=== PATIENT | male | born 1965 | race Caucasian/White ===

== ENCOUNTER 2016-10-01 15:33 | Inpatient (IN) | payer MEDICARE ==
--- NOTE | 2016-10-01 15:59 | ED ---
General Adult HPI - General Chief complaint: Chest Pain Stated complaint: chest pain Time Seen by Provider: 10/01/16 15:42 Source: patient, RN notes reviewed, old records reviewed Mode of arrival: ambulatory Limitations: no limitations - History of Present Illness Initial comments: This is a 51-year-old male via for evaluation of chest pain. Patient awoke with chest pain earlier this morning with chest pain and off for him mild radiation no source of breath no cough or congestion. Patient does have history of high blood pressure high cholesterol smoking and some heart palpitations heart issues. Patient has a history of angina as well. Patient denies any fevers or cough or congestion or family history. Patient's chest pain has been persistent, no modifying factors, not better with Motrin - Related Data Home Medications Medication Instructions Recorded Confirmed Ibuprofen [Motrin] 800 mg PO BID PRN 10/01/16 10/01/16 Allergies Allergy/AdvReac Type Severity Reaction Status Date / Time latex Allergy Rash/Hives Verified 10/01/16 15:55 Review of Systems ROS Statement: Those systems with pertinent positive or pertinent negative responses have been documented in the HPI. ROS Other: All systems not noted in ROS Statement are negative. Past Medical History Past Medical History: Asthma, GERD/Reflux, Hypertension, Skin Disorder Additional Past Medical History / Comment(s): palpitations, uticaria vasculitis , RSD History of Any Multi-Drug Resistant Organisms: None Reported Past Surgical History: Hernia Repair, Tonsillectomy Additional Past Surgical History / Comment(s): cystoscopy, devise in left hip for rsd, Past Anesthesia/Blood Transfusion Reactions: No Reported Reaction Past Psychological History: No Psychological Hx Reported Smoking Status: Current every day smoker Past Alcohol Use History: None Reported Additional Past Alcohol Use History / Comment(s): SMOKES 1/2 PPD for 20 yrs Past Drug Use History: None Reported - Past Family History Father Family Medical History: Cancer General Exam Limitations: no limitations General appearance: alert, in no apparent distress, anxious Head exam: Present: atraumatic, normocephalic, normal inspection Eye exam: Present: normal appearance, PERRL, EOMI. Absent: scleral icterus, conjunctival injection, periorbital swelling ENT exam: Present: normal exam, mucous membranes moist Neck exam: Present: normal inspection. Absent: tenderness, meningismus, lymphadenopathy Respiratory exam: Present: normal lung sounds bilaterally. Absent: respiratory distress, wheezes, rales, rhonchi, stridor Cardiovascular Exam: Present: regular rate, normal rhythm, normal heart sounds. Absent: systolic murmur, diastolic murmur, rubs, gallop, clicks GI/Abdominal exam: Present: soft, normal bowel sounds. Absent: distended, tenderness, guarding, rebound, rigid Extremities exam: Present: normal inspection, full ROM, normal capillary refill. Absent: tenderness, pedal edema, joint swelling, calf tenderness Back exam: Present: normal inspection Neurological exam: Present: alert, oriented X3, CN II-XII intact Psychiatric exam: Present: normal affect, normal mood Skin exam: Present: warm, dry, intact, normal color. Absent: rash Course Vital Signs 10/01/16 10/01/16 10/01/16 15:35 15:50 16:18 Temperature 98 F Pulse Rate 97 90 88 Respiratory 18 18 18 Rate Blood Pressure 203/113 170/104 176/104 O2 Sat by Pulse 98 98 98 Oximetry 10/01/16 16:48 Temperature Pulse Rate 88 Respiratory 18 Rate Blood Pressure 176/108 O2 Sat by Pulse 98 Oximetry - Reevaluation(s) Reevaluation #1: 10/01/16 16:12 Patient still having chest pain numbness of left anterior chest EKG Findings - EKG Comments: EKG Findings:: EKG shows normal sinus rhythm rate of 57, [place] 140, QRS 100, QTC 423 Medical Decision Making - Medical Decision Making 51 Ian here for evaluation. Patient was in severe for evaluation of chest pain. History of hypertension and a medication high cholesterol no medication does smoke no diabetes but is overweight. Patient will be admitted for cardiac observation, telemetry and anticoagulation, initial troponin and EKG are negative. - Lab Data Result diagrams: 10/01/16 16:00 10/01/16 16:00 Lab Results 10/01/16 10/01/16 10/01/16 Range/Units 16:00 16:00 16:00 WBC 8.9 (3.8-10.6) k/uL RBC 4.95 (4.30-5.90) m/uL Hgb 14.5 (13.0-17.5) gm/dL Hct 43.4 (39.0-53.0) % MCV 87.7 (80.0-100.0) fL MCH 29.3 (25.0-35.0) pg MCHC 33.5 (31.0-37.0) g/dL RDW 13.1 (11.5-15.5) % Plt Count 298 (150-450) k/uL Neutrophils % 47 % Lymphocytes % 40 % Monocytes % 5 % Eosinophils % 5 % Basophils % 1 % Neutrophils # 4.2 (1.3-7.7) k/uL Lymphocytes # 3.6 (1.0-4.8) k/uL Monocytes # 0.4 (0-1.0) k/uL Eosinophils # 0.4 (0-0.7) k/uL Basophils # 0.1 (0-0.2) k/uL PT (9.0-12.0) sec INR (<1.1) APTT (22.0-30.0) sec Sodium 141 (137-145) mmol/L Potassium 4.2 (3.5-5.1) mmol/L Chloride 106 (98-107) mmol/L Carbon Dioxide 27 (22-30) mmol/L Anion Gap 8 mmol/L BUN 16 (9-20) mg/dL Creatinine 0.91 (0.66-1.25) mg/dL Est GFR (MDRD) Af Amer >60 (>60 ml/min/1.73 sqM) Est GFR (MDRD) Non-Af >60 (>60 ml/min/1.73 sqM) Glucose 134 H (74-99) mg/dL Calcium 9.6 (8.4-10.2) mg/dL Magnesium 2.0 (1.6-2.3) mg/dL Total Bilirubin 0.6 (0.2-1.3) mg/dL AST 26 (17-59) U/L ALT 38 (21-72) U/L Alkaline Phosphatase 67 (38-126) U/L Total Creatine Kinase 41 L (55-170) U/L CK-MB (CK-2) 0.3 (0.0-2.4) ng/mL CK-MB (CK-2) Rel Index 0.7 Troponin I <0.012 (0.000-0.034) ng/mL Total Protein 7.7 (6.3-8.2) g/dL Albumin 4.4 (3.5-5.0) g/dL Lipase 68 (23-300) U/L 10/01/16 Range/Units 16:00 WBC (3.8-10.6) k/uL RBC (4.30-5.90) m/uL Hgb (13.0-17.5) gm/dL Hct (39.0-53.0) % MCV (80.0-100.0) fL MCH (25.0-35.0) pg MCHC (31.0-37.0) g/dL RDW (11.5-15.5) % Plt Count (150-450) k/uL Neutrophils % % Lymphocytes % % Monocytes % % Eosinophils % % Basophils % % Neutrophils # (1.3-7.7) k/uL Lymphocytes # (1.0-4.8) k/uL Monocytes # (0-1.0) k/uL Eosinophils # (0-0.7) k/uL Basophils # (0-0.2) k/uL PT 10.0 (9.0-12.0) sec INR 1.0 (<1.1) APTT 24.6 (22.0-30.0) sec Sodium (137-145) mmol/L Potassium (3.5-5.1) mmol/L Chloride (98-107) mmol/L Carbon Dioxide (22-30) mmol/L Anion Gap mmol/L BUN (9-20) mg/dL Creatinine (0.66-1.25) mg/dL Est GFR (MDRD) Af Amer (>60 ml/min/1.73 sqM) Est GFR (MDRD) Non-Af (>60 ml/min/1.73 sqM) Glucose (74-99) mg/dL Calcium (8.4-10.2) mg/dL Magnesium (1.6-2.3) mg/dL Total Bilirubin (0.2-1.3) mg/dL AST (17-59) U/L ALT (21-72) U/L Alkaline Phosphatase (38-126) U/L Total Creatine Kinase (55-170) U/L CK-MB (CK-2) (0.0-2.4) ng/mL CK-MB (CK-2) Rel Index Troponin I (0.000-0.034) ng/mL Total Protein (6.3-8.2) g/dL Albumin (3.5-5.0) g/dL Lipase (23-300) U/L Critical Care Time Critical Care Time: Yes Total Critical Care Time: 31 Disposition Clinical Impression: Chest pain Disposition: ADMITTED IP TO THIS HOSP Condition: Undetermined
[2016-10-01] MEDS ORDERED: HEPARIN SODIUM,PORCINE 5,000 UNIT/ML 1 ML VIAL IV ONE (16:10)
[2016-10-01] MEDS ORDERED: NITROGLYCERIN SL TABS 0.4 MG TAB SUBLINGUAL PRN (16:10)
[2016-10-01] MEDS ORDERED: MORPHINE SULFATE 4 MG/ML SYRINGE IV PRN (16:10)
[2016-10-01] MEDS ORDERED: HEPARIN SODIUM,PORCINE 5,000 UNIT/ML 1 ML VIAL IV PRN (16:10)
[2016-10-01] MEDS ORDERED: ASPIRIN 81 MG CHEW PO STA (16:10)
[2016-10-01] MEDS ORDERED: HEPARIN SODIUM,PORCINE/D5W PMX 25,000 UNIT in DEXTROSE/WATER 1 500ML.BAG IV SCH (16:15)
[2016-10-01 16:28] LABS: Basophils # (A) 0.1 k/uL (0-0.2); Basophils % (A) 1 %; CH 29.2; CHCM 33.5; Eosinophils # (A) 0.4 k/uL (0-0.7); Eosinophils % (A) 5 %; HCT 43.4 % (39.0-53.0); HDW 2.47; HGB 14.5 gm/dL (13.0-17.5); Luc % (Auto) 2; Lymphocytes # (A) 3.6 k/uL (1.0-4.8); Lymphocytes % (A) 40 %; MCH 29.3 pg (25.0-35.0); MCHC 33.5 g/dL (31.0-37.0); MCV 87.7 fL (80.0-100.0); Monocytes # (A) 0.4 k/uL (0-1.0); Monocytes % (A) 5 %; Neutrophils # (A) 4.2 k/uL (1.3-7.7); Neutrophils % (A) 47 %; RBC 4.95 m/uL (4.30-5.90); RDW 13.1 % (11.5-15.5); WBC 8.9 k/uL (3.8-10.6); WBC (Perox) 8.55
[2016-10-01 16:37] LABS: ALT 38 U/L (21-72); AST 26 U/L (17-59); Alkaline Phosphatase 67 U/L (38-126); Anion Gap 8 mmol/L; Blood Urea Nitrogen 16 mg/dL (9-20); Calcium 9.6 mg/dL (8.4-10.2); Carbon Dioxide 27 mmol/L (22-30); Chloride 106 mmol/L (98-107); Glucose 134 mg/dL (74-99); Non-African American GFR(MDRD) >60 (>60 ml/min/1.73 sqM); Potassium 4.2 mmol/L (3.5-5.1); Sodium 141 mmol/L (137-145); Total Bilirubin 0.6 mg/dL (0.2-1.3); Total Protein 7.7 g/dL (6.3-8.2)
--- NOTE | 2016-10-01 16:40 | XR ---
EXAMINATION TYPE: XR chest 2V DATE OF EXAM: 10/01/2016 4:31 PM COMPARISON: NONE INDICATION: Chest pain TECHNIQUE: Single frontal view of the chest is obtained. FINDINGS: The heart size is normal. The pulmonary vasculature is normal. There is a 3.5 cm nodule within the right midlung. Additional workup for neoplasm is recommended. No suspicious consolidations are evident. IMPRESSION: 1. 3.5 cm nodule right midlung. Additional workup for primary metastatic neoplasm is recommended.
[2016-10-01 16:42] LABS: Partial Thromboplastin Time 24.6 sec (22.0-30.0)
[2016-10-01 16:46] LABS: Creatine Kinase 41 U/L (55-170)
[2016-10-01] MEDS: SODIUM CHLORIDE 0.9% 1,000 ML IV SCH (16:46)
[2016-10-01 16:59] LABS: Creatine Kinase MB 0.3 ng/mL (0.0-2.4); Troponin I <0.012 ng/mL (0.000-0.034)
[2016-10-01 18:21] VITALS: BMI 32.8
--- NOTE | 2016-10-01 19:06 | P.HPIM ---
History of Present Illness H&P Date: 10/01/16 Chief Complaint: Chest pain This is a 51-year-old male one of [address] with a previous medical history significant for CAD post-[place] back in 1987, hypertension and hypertensive cardio vascular disease, hyperlipidemia, osteoarthritis both shoulders and both knees along with complex regional pain syndrome involving the left foot, patient was in his usual state of health until about yesterday when he woke up at around 5:00 in the morning with left-sided chest pain was described as a sharp pain radiating to the neck associated with increased shortness breath at the same time he felt a bit nauseated, subsequently patient developed to have an increased pain this afternoon and he was described as stabbing pain associated with numbness in the left side of the chest patient stated that he usually. Much active he walk on a treadmill for 30 minutes on a daily basis without any chest pain but he does competitive palpitation in the end of the exercise, patient ended up coming to the ER had a twelve-lead EKG that showed normal sinus rhythm, cardiac enzymes were negative there is no ST-T wave changes , however because of his presentation he was admitted to the hospital as an observation he was placed on aspirin, heparin, nitroglycerin paste, and the cardiology consultation tomorrow morning. Review of Systems Constitutional: Reports chronic pain, Reports weight gain, Denies anorexia, Denies chronic headaches, Denies lethargy, Denies weakness, Denies weight loss Eyes: denies as per HPI, denies blurred vision, denies bulging eye Ears: deny: decreased hearing Ears, nose, mouth and throat: Denies dysphagia, Denies neck lump, Denies sore throat, Denies vertigo Cardiovascular: Reports chest pain, Reports decreased exercise tolerance, Reports dyspnea on exertion, Reports high blood pressure, Reports shortness of breath, Denies phlebitis, Denies rapid heart beat, Denies syncope Respiratory: Reports dyspnea, Denies congestion, Denies cough, Denies cough with sputum, Denies home oxygen, Denies sleep apnea, Denies snoring, Denies wheezing Gastrointestinal: Reports nausea, Denies abdominal pain, Denies bloating, Denies BRBPR, Denies change in bowel habits, Denies heartburn, Denies melena, Denies vomiting Genitourinary: Denies dysuria, Denies nocturia, Denies polyuria Musculoskeletal: Reports muscle weakness, Reports shooting leg pain, Denies myalgias Musculoskeletal: left: ankle pain, ankle stiffness, ankle swelling, foot pain, foot stiffness, foot swelling, bilateral: knee pain, shoulder pain, wrist pain, absent: elbow pain, elbow stiffness, elbow swelling, hand pain, hand stiffness, hand swelling, hip pain, hip stiffness, hip swelling, knee stiffness, knee swelling, shoulder stiffness, shoulder swelling Integumentary: Denies pruritus, Denies rash Neurological: Reports paresthesias, Denies numbness, Denies weakness Psychiatric: Denies anxiety, Denies depression Endocrine: Denies fatigue, Denies weight change Past Medical History Past Medical History: Asthma, GERD/Reflux, Hyperlipidemia, Hypertension, Myocardial Infarction ([place]), Osteoarthritis (OA), Skin Disorder Additional Past Medical History / Comment(s): palpitations, uticaria vasculitis , RSD (nerve discorder, tens implant and control is at home) Last Myocardial Infarction Date:: 1986 (was told but did not know) History of Any Multi-Drug Resistant Organisms: None Reported Past Surgical History: Hernia Repair, Tonsillectomy Additional Past Surgical History / Comment(s): cystoscopy, device in left hip for rsd, 5x hernia sx5, tonsillectomy and adenoidectomy, colonoscopy. Past Anesthesia/Blood Transfusion Reactions: No Reported Reaction Past Psychological History: No Psychological Hx Reported Smoking Status: Current every day smoker (Patient smokes about pack every day smoke since 24-year-old) Past Alcohol Use History: None Reported Additional Past Alcohol Use History / Comment(s): SMOKES 1/2 PPD for 20 yrs Past Drug Use History: None Reported - Past Family History Father Family Medical History: Cancer, Congestive Heart Failure (CHF) (Father at age of 91 from congestive heart failure.) Mother Family Medical History: Dementia (Mother at age 90 from as her dementia.) Brother(s) Family Medical History: Coronary Artery Disease (CAD) (Patient has 2 brothers one of the brothers with CAD) Sister(s) Family Medical History: Diabetes Mellitus (Patient had 2 sisters one of them at age of 56 from diabetes complications.) Daughter(s) Family Medical History: No Reported History (Patient has 3 daughters no major medical problems) Son(s) Family Medical History: No Reported History (Patient has one son no major medical problems) Medications and Allergies Home Medications Medication Instructions Recorded Confirmed Type Ibuprofen [Motrin] 800 mg PO BID PRN 10/01/16 10/01/16 History Allergies Allergy/AdvReac Type Severity Reaction Status Date / Time latex Allergy Rash/Hives Verified 10/01/16 15:55 Physical Exam Vitals: Vital Signs Temp Pulse Pulse Resp BP BP Pulse Ox 10/01/16 17:57 97.8 F 80 18 178/99 96 10/01/16 16:48 88 18 176/108 98 10/01/16 16:18 88 18 176/104 98 Intake and Output 10/01/16 10/01/16 10/01/16 06:59 14:59 22:59 Other: Weight 112.9 kg Patient Weight 10/02/16 06:59 Weight 112.9 kg - Constitutional General appearance: average body habitus, mild distress - EENT Eyes: EOMI, PERRLA, no ptosis, no scleral icterus, normal appearance ENT: hearing grossly normal, NA/AT, normal oropharynx, no thrush Ears: bilateral: normal - Neck Neck: no lymphadenopathy, normal ROM, no rigidity, no stridor, no thyromegaly Carotids: bilateral: upstroke normal Thyroid: bilateral: normal size - Respiratory Respiratory: bilateral: diminished, rhonchi, negative: dullness, rales, wheezing , prolonged expiration - Cardiovascular Rhythm: regular Heart sounds: normal: S1, S2 Abnormal Heart Sounds: no systolic murmur, no diastolic murmur, no rub, no S3 Gallop, no S4 Gallop, no click - Gastrointestinal General gastrointestinal: normal bowel sounds, soft, no splenomegaly, tenderness (Left lower quadrant), umbilical hernia, ventral hernia - Genitourinary Male genitourinary: enlarged prostate - Integumentary Integumentary: normal, normal turgor - Neurologic Neurologic: CNII-XII intact, focal deficits (Left foot with decreased range of motion.) - Musculoskeletal Musculoskeletal: gait normal, strength equal bilaterally - Psychiatric Psychiatric: A&O x's 3, appropriate affect, intact judgment & insight Results CBC & Chem 7: 10/01/16 16:00 10/01/16 16:00 Thrombosis Risk Factor Assmnt - DVT/VTE Prophylaxis DVT/VTE Prophylaxis: Pharmacologic Prophylaxis ordered, Mechanical Prophylaxis ordered - Choose All That Apply Any of the Below Risk Factors Present?: Yes Each Factor Represents 1 point: Age 41-60 years, Obesity (BMI >25) Thrombosis Risk Factor Assessment Total Risk Factor Score: 2 Thrombosis Risk Factor Assessment Level: Low Risk Assessment and Plan Plan: Assessment and plan: 1. Chest pain likely noncardiac however he does have a few risk factor for CAD including an [place] in the past, chronic tobacco use and dependence, hypertension, hyperlipidemia, as well as age and gender, family history, start heparin drip, aspirin 325 mg orally once every day, nitroglycerin paste 1 inch every 6 hours, Lipitor 80 mg orally once every day, metoprolol 50 mg orally twice every day, cardiology consultation, cardiac enzymes 3 every 8 hours. 2. History of CAD post [place] in the past. Continue aspirin 325 mg once every day , metoprolol 50 mg orally twice every day, Lipitor 80 mg orally once every day. 3. Hypertension and hypertensive cardiovascular disease. Continue metoprolol 50 mg orally twice every day. 4. Hyperlipidemia. Continue patient on Lipitor 80 mg orally once every day. 5. Osteoarthritis of both shoulders and both knees. Continue current pain management. 6. Complex regional pain syndrome. Stable at this point in time. 7. Chronic tobacco use and dependence. Patient was counseled on smoking cessation and increased risk of CAD, CVA, and malignancy, we will start the patient on nicotine patch 14 mg daily. 8. DVT prophylaxis. Currently on heparin drip. 9. GI prophylaxis. Continue patient on PPI. 10. Full code. 11. Observation.
[2016-10-01] MEDS: NITROGLYCERIN OINT 1 INCH/GM PACKET TOPICAL SCH ×2 (21:45→23:04)
[2016-10-01] MEDS: NICOTINE 14MG/24HR PATCH TRANSDERM SCH (21:46)
[2016-10-01] MEDS: METOPROLOL TARTRATE 50 MG TAB PO SCH (21:46)
[2016-10-01 23:14] LABS: Creatine Kinase 36 U/L (55-170)
[2016-10-01 23:28] LABS: Creatine Kinase MB 0.2 ng/mL (0.0-2.4); Troponin I <0.012 ng/mL (0.000-0.034)
[2016-10-02] MEDS ORDERED: ACETAMINOPHEN TAB 325 MG TAB PO PRN (01:28)
[2016-10-02 05:21] LABS: CH 29.4; CHCM 33.1; HCT 41.9 % (39.0-53.0); HDW 2.46; HGB 13.6 gm/dL (13.0-17.5); MCHC 32.4 g/dL (31.0-37.0); MCV 89.2 fL (80.0-100.0); RBC 4.69 m/uL (4.30-5.90); RDW 13.3 % (11.5-15.5); WBC 8.5 k/uL (3.8-10.6); WBC (Perox) 8.45
[2016-10-02 05:35] LABS: Creatine Kinase 35 U/L (55-170)
[2016-10-02 05:42] LABS: Add Differential Manual Differential
[2016-10-02 05:44] LABS: Creatine Kinase MB 0.3 ng/mL (0.0-2.4); Manual Review Performed; Nucleated Red Blood Cells 0 /100 WBC (0-0); Total Cells Counted 100
[2016-10-02 05:48] LABS: Troponin I <0.012 ng/mL (0.000-0.034)
[2016-10-02 06:05] LABS: ALT 42 U/L (21-72); AST 30 U/L (17-59); Alkaline Phosphatase 69 U/L (38-126); Anion Gap 6 mmol/L; Blood Urea Nitrogen 18 mg/dL (9-20); Calcium 9.2 mg/dL (8.4-10.2); Carbon Dioxide 26 mmol/L (22-30); Chloride 107 mmol/L (98-107); Cholesterol 212 mg/dL (<200); Glucose 111 mg/dL (74-99); HDL Cholesterol 47 mg/dL (40-60); Non-African American GFR(MDRD) >60 (>60 ml/min/1.73 sqM); Potassium 4.8 mmol/L (3.5-5.1); Sodium 139 mmol/L (137-145); Total Bilirubin 0.5 mg/dL (0.2-1.3); Total Protein 6.7 g/dL (6.3-8.2); Triglycerides 122 mg/dL (<150)
[2016-10-02] MEDS: SODIUM CHLORIDE 0.9% 1,000 ML IV SCH ×3 (06:33→19:56)
[2016-10-02] MEDS ORDERED: ATORVASTATIN 80 MG TAB PO SCH ×2 (09:00→21:00)
[2016-10-02] MEDS ORDERED: ASPIRIN 325 MG TAB PO SCH (09:00)
[2016-10-02] MEDS ORDERED: SODIUM CHLORIDE 0.9% 1,000 ML in EMPTY BAG 1 BAG IV ONE (10:21)
[2016-10-02] MEDS ORDERED: ALPRAZolam 0.25 MG TAB PO PRN (10:21)
[2016-10-02] MEDS ORDERED: ALPRAZolam 0.5 MG TAB PO PRN (10:21)
--- NOTE | 2016-10-02 10:26 | P.CRDCN ---
History of Present Illness Consult date: 10/02/16 History of present illness: This is a 51-year-old gentleman with history of a previous myocardial infarction which he suffered in 1987. He claims he was treated in one of the [employer], [place]. It doesn't appear that patient had any invasive workup at the time. Since then patient has been relatively stable except he has been having scant intermittent palpitations. Patient now comes to the hospital with complaints of left-sided chest discomfort. Patient woke up yesterday with left- sided pain which was sharp in nature, but has a numb feeling in the chest with radiation to the left shoulder and also left arm. The pain continued until last night and was relieved with Nitropaste. This morning patient walked to the bathroom and when he came back he had similar symptoms. His EKGs and cardiac enzymes are negative. As patient is still having intermittent pain and has multiple risk factors, patient is advised to have a cardiac catheterization for definitive diagnosis. Patient was explained the risks and benefits of the procedure including the possibility of stroke, myocardial infarction or even . Patient and fully understood and accepted. Review of Systems REVIEW OF SYSTEMS: CONSTITUTIONAL:. Patient is doing well. No complaints of fever or chills EYES: Denies diplopia, blurring of vision EARS, NOSE, MOUTH, THROAT: Denies headaches, denies sore throat. CARDIOVASCULAR: As per HPI RESPIRATORY: Denies shortness of breath, denies cough. GASTROINTESTINAL: Denies change in appetite, denies abdominal pain, denies diarrhea GENITOURINARY: Denies hematuria, denies infections. MUSKULOSKELETAL: Complaints of knee pain INTEGUMENTARY: Denies rash, denies eczema. NEUROLOGICAL: Denies focal weakness, or visual disturbance. Denies any dizziness or syncope PSYCHIATRIC: Denies anxiety, denies depression. HEMATOLOGIC/LYMPHATIC: Denies any bleeding, denies enlarged lymph nodes. Past Medical History Past Medical History: Asthma, GERD/Reflux, Hyperlipidemia, Hypertension, Myocardial Infarction (IN), Osteoarthritis (OA), Skin Disorder Additional Past Medical History / Comment(s): palpitations, uticaria vasculitis , RSD (nerve discorder, tens implant and control is at home) Last Myocardial Infarction Date:: 1986 (was told but did not know) History of Any Multi-Drug Resistant Organisms: None Reported Past Surgical History: Hernia Repair, Tonsillectomy Additional Past Surgical History / Comment(s): cystoscopy, device in left hip for rsd, 5x hernia sx5, tonsillectomy and adenoidectomy, colonoscopy. Past Anesthesia/Blood Transfusion Reactions: No Reported Reaction Past Psychological History: No Psychological Hx Reported Smoking Status: Current every day smoker (Patient smokes about pack every day smoke since 24-year-old) Past Alcohol Use History: None Reported Additional Past Alcohol Use History / Comment(s): SMOKES 1/2 PPD for 20 yrs Past Drug Use History: None Reported - Past Family History Father Family Medical History: Cancer, Congestive Heart Failure (CHF) (Father at age of 91 from congestive heart failure.) Mother Family Medical History: Dementia (Mother at age 90 from as her dementia.) Brother(s) Family Medical History: Coronary Artery Disease (CAD) (Patient has 2 brothers one of the brothers with CAD) Sister(s) Family Medical History: Diabetes Mellitus (Patient had 2 sisters one of them at age of 56 from diabetes complications.) Daughter(s) Family Medical History: No Reported History (Patient has 3 daughters no major medical problems) Son(s) Family Medical History: No Reported History (Patient has one son no major medical problems) Medications and Allergies Home Medications Medication Instructions Recorded Confirmed Type Ibuprofen [Motrin] 800 mg PO BID PRN 10/01/16 10/01/16 History Allergies Allergy/AdvReac Type Severity Reaction Status Date / Time latex Allergy Rash/Hives Verified 10/01/16 15:55 Physical Exam Vitals: Vital Signs Temp Pulse Pulse Pulse Resp BP BP 10/02/16 08:00 97.9 F 60 18 136/98 10/02/16 03:44 20 10/02/16 03:42 97.7 F 60 20 134/89 10/02/16 00:00 98.3 F 72 18 132/86 10/01/16 20:29 97.9 F 61 16 192/110 10/01/16 20:00 16 10/01/16 17:57 97.8 F 80 18 178/99 10/01/16 16:48 88 18 176/108 10/01/16 16:18 88 18 176/104 Pulse Ox 10/02/16 08:00 95 10/02/16 03:44 10/02/16 03:42 93 L 10/02/16 00:00 96 10/01/16 20:29 94 L 10/01/16 20:00 10/01/16 17:57 96 10/01/16 16:48 98 10/01/16 16:18 98 Intake and Output 10/01/16 10/02/16 10/02/16 22:59 06:59 14:59 Intake Total 347.766 Balance 347.766 Intake: IV 220 0.9@20 100 Heparin Sodium,Porcine/ 120 D5w Pmx 25,000 unit In Dextrose/Water 1 500ml. bag @ 9.2 UNITS/KG/HR 19. 86 mls/hr IV .Q24H [facility] Rx #:[id number] Intake, IV Titration 127.766 Amount Heparin Sodium,Porcine/ 127.766 D5w Pmx 25,000 unit In Dextrose/Water 1 500ml. bag @ 9.2 UNITS/KG/HR 19. 86 mls/hr IV .Q24H [facility] Rx #:[id number] Other: Voiding Method Toilet Toilet Toilet # Voids 2 Weight 112.9 kg GENERAL EXAM: Patient is alert and oriented and doesn't appear to be in any acute distress HEENT: Normocephalic. Normal reaction of pupils, equal size, normal range of extraocular motion. No erythema or exudates in the throat. NECK: No masses, no nuchal rigidity. CHEST: No chest wall deformity. LUNGS: Equal air entry with no crackles or wheeze. HEART: S1 and S2 normal with no audible mumurs or gallops. Regular rhythm, femorals equal on both sides.. ABDOMEN: No hepatosplenomegaly, normal bowel sounds, no guarding or rigidity. SKIN: No rashes CENTRAL NERVOUS SYSTEM: No focal deficits. EXTREMITIES: No cyanosis, clubbing or edema. Results 10/02/16 04:50 10/02/16 04:50 Cardiac Enzymes 10/01/16 10/02/16 10/02/16 Range/Units 22:28 04:50 04:50 AST 30 (17-59) U/L CK-MB (CK-2) 0.2 0.3 (0.0-2.4) ng/mL Troponin I <0.012 <0.012 (0.000-0.034) ng/mL Coagulation 10/01/16 10/02/16 Range/Units 22: 04:50 APTT 31.4 H 51.3 H (22.0-30.0) sec Lipids 10/02/16 Range/Units 04:50 Triglycerides 122 (<150) mg/dL Cholesterol 212 H (<200) mg/dL HDL Cholesterol 47 (40-60) mg/dL CBC 10/02/16 Range/Units 04:50 WBC 8.5 (3.8-10.6) k/uL RBC 4.69 (4.30-5.90) m/uL Hgb 13.6 (13.0-17.5) gm/dL Hct 41.9 (39.0-53.0) % Plt Count 257 (150-450) k/uL Comprehensive Metabolic Panel 10/02/16 Range/Units 04:50 Sodium 139 (137-145) mmol/L Potassium 4.8 (3.5-5.1) mmol/L Chloride 107 (98-107) mmol/L Carbon Dioxide 26 (22-30) mmol/L BUN 18 (9-20) mg/dL Creatinine 1.00 (0.66-1.25) mg/dL Glucose 111 H (74-99) mg/dL Calcium 9.2 (8.4-10.2) mg/dL AST 30 (17-59) U/L ALT 42 (21-72) U/L Alkaline Phosphatase 69 (38-126) U/L Total Protein 6.7 (6.3-8.2) g/dL Albumin 3.7 (3.5-5.0) g/dL Current Medications Generic Name Dose Route Start Last Admin Trade Name Freq PRN Reason Stop Dose Admin Acetaminophen 650 mg 10/02/16 01:28 10/02/16 01:31 Tylenol Tab PO 650 mg Q4HR PRN Administration Fever and/ or Pain Alprazolam 0.25 mg 10/02/16 10:21 Xanax PO Q6HR PRN Mild Anxiety Alprazolam 0.5 mg 10/02/16 10:21 Xanax PO Q6HR PRN Moderate Anxiety Aspirin 325 mg 10/02/16 09:00 Aspirin PO DAILY [facility] Atorvastatin Calcium 80 mg 10/02/16 09:00 Lipitor PO DAILY [facility] Heparin Sodium (Porcine) 0 unit 10/01/16 16:10 10/01/16 23:11 Heparin IV 4,000 unit Q6HR PRN Administration Low PTT Protocol Heparin Sodium/Dextrose 25,000 500 mls @ 19.86 mls/hr 10/01/16 16:15 23:12 unit/ IV Solution IV 12.2 units/kg/hr .Q24H [facility] 26.34 mls/hr Protocol Titration 9.2 UNITS/KG/HR Sodium Chloride 1,000 mls @ 100 mls/hr 10/01/16 16:15 10/02/16 06:33 Saline 0.9% IV Not Given .Q10H [facility] Sodium Chloride 1,000 ml/ IV 1,000 mls @ 112.9 mls/hr 10/02/16 10:21 Solution IV 10/02/16 10:22 .Q8H52M ONE 1 ML/KG/HR Metoprolol Tartrate 50 mg 10/01/16 21:00 10/01/16 21:46 Lopressor PO 50 mg BID [facility] Administration Morphine Sulfate 4 mg 10/01/16 16:10 Morphine Sulfate (Inj) IV Q4HR PRN Chest Pain Nicotine 1 patch 10/01/16 19:15 10/01/16 21:46 Habitrol 14mg/24hr Patch TRANSDERM 1 patch DAILY [facility] Administration Nitroglycerin 0.4 mg 10/01/16 16:10 Nitrostat SUBLINGUAL Q5M PRN Chest Pain Nitroglycerin 0.5 inch 10/01/16 19:15 10/01/16 23:04 Nitro-Bid Oint TOPICAL Not Given Q8HR [facility] Pantoprazole Sodium 40 mg 10/02/16 07:30 Protonix PO AC-BRKFST [facility] Intake and Output 10/01/16 10/02/16 10/02/16 22:59 06:59 14:59 Intake Total 347.766 Balance 347.766 Intake: IV 220 0.9@20 100 Heparin Sodium,Porcine/ 120 D5w Pmx 25,000 unit In Dextrose/Water 1 500ml. bag @ 9.2 UNITS/KG/HR 19. 86 mls/hr IV .Q24H [facility] Rx #:[id number] Intake, IV Titration 127.766 Amount Heparin Sodium,Porcine/ 127.766 D5w Pmx 25,000 unit In Dextrose/Water 1 500ml. bag @ 9.2 UNITS/KG/HR 19. 86 mls/hr IV .Q24H [facility] Rx #:[id number] Other: Voiding Method Toilet Toilet Toilet # Voids 2 Weight 112.9 kg 10/02/16 04:50 10/02/16 04:50 EKG Interpretations (text) Sinus rhythm Assessment and Plan (1) History of coronary artery disease Status: Acute (2) Chest pain Status: Acute (3) Smoking Status: Acute (4) Family history of ischemic heart disease Status: Acute Plan: Procedure with a cardiac catheterization and echocardiogram the Doppler. Further recommendations depend upon the findings on the about test
[2016-10-02] MEDS ORDERED: LIDOCAINE 2% INJ 20 MG/ML (20 ML MDV) ONE (10:55)
[2016-10-02] MEDS ORDERED: MIDAZOLAM 2 MG/2 ML VIAL ONE (11:10)
[2016-10-02] MEDS ORDERED: fentaNYL (PF) 50 MCG/ML 2 ML AMP ONE (11:10)
[2016-10-02] MEDS ORDERED: VERAPAMIL 2.5 MG/ML 2 ML AMP ONE (11:15)
[2016-10-02] MEDS ORDERED: diphenhydrAMINE 50 MG/ML 1 ML VIAL ONE (11:16)
[2016-10-02] MEDS ORDERED: diphenhydrAMINE 50 MG/ML 1 ML VIAL IVP ONE (11:17)
[2016-10-02] MEDS ORDERED: fentaNYL (PF) 50 MCG/ML 2 ML AMP IV ONE (11:17)
[2016-10-02] MEDS ORDERED: MIDAZOLAM 2 MG/2 ML VIAL IV ONE (11:17)
[2016-10-02] MEDS ORDERED: HEPARIN SODIUM 1,000 UNIT/ML VIAL ONE (11:19)
[2016-10-02] MEDS ORDERED: HEPARIN SODIUM 1,000 UNIT/ML VIAL IV ONE ×2 (11:24→11:29)
[2016-10-02] MEDS ORDERED: LIDOCAINE 2% INJ 20 MG/ML SQ ONE (11:24)
[2016-10-02] MEDS: VERAPAMIL SYRINGE (5 MG/10 ML) INTRAARTER ONE ×2 (11:28→12:41)
[2016-10-02] MEDS ORDERED: IV FLUID CONTINUATION 1,000 ML IV ONE (11:28)
[2016-10-02] MEDS ORDERED: NITROGLYCERIN OINT 1 INCH/GM PACKET TOPICAL ONE ×2 (11:43→11:45)
[2016-10-02] MEDS ORDERED: ENALAPRILAT 1.25 MG/ML 1 ML VIAL ONE (11:56)
[2016-10-02] MEDS ORDERED: ENALAPRILAT 1.25 MG/ML 1 ML VIAL IV ONE (12:03)
--- NOTE | 2016-10-02 12:04 | P.PCN ---
Date of Procedure: 10/02/16 Preoperative Diagnosis: Unstable angina Postoperative Diagnosis: Diffuse coronary artery disease with noncritical lesions in the left main and circumflex and a long significant lesion stenosis involving mid LAD Procedure(s) Performed: Left heart catheter with left ventriculography Description of Procedure: HISTORY: This is a 51-year-old gentleman history of hypertension, family history of ischemic heart disease and smoking who was admitted to the hospital with complaints of recurrent chest pain size to of unstable angina. His cardiac enzymes and EKGs were negative. Given his multiple risk factors, patient is advised to have cardiac catheterization for definitive diagnosis. He is currently on beta blockers and nitrates CONSENT:I have discussed the risks, benefits and alternative therapies for the above-mentioned procedure and for both sedation/analgesia as well as necessary blood product administration, if indicated, as they pertain to this patient. The patient has indicated understanding and acceptance of the risks and procedures discussed. PROCEDURE: Patient was brought to the lab in a fasting state. Patient was given some IV sedation. The right wrist is infiltrated with lidocaine and right radial artery was entered using Seldinger technique. A 6-Japanese catheter was left in place and selective coronary arteriography and left ventriculography was performed. Patient tolerated the procedure well. Patient is found to have significant disease in the LAD and is waiting to have further evaluation by Dr. Escobedo for possible stent placement. HEMODYNAMICS: The aortic pressure is about 150-170 systolic/96 diastolic. There was no gradient across the aortic valve. End-diastolic pressure is about 20. SELECTIVE CORONARY ARTERIOGRAPHY: LEFT MAIN: Normal length with a distal 30% stenosis THE LEFT ANTERIOR DESCENDING CORONARY ARTERY: This is a good caliber vessel giving rise to good-sized os diagonal branch and a moderate caliber second diagonal branch. The LAD has a long lesion between the 2 diagonal branches with 70-80% stenosis. The distal LAD appears to be monitored and size with mild diffuse plaque. THE LEFT CIRCUMFLEX AND IS CORONARY ARTERY: This is a moderate caliber vessel with some mild to moderate disease in the proximal and midportion with about 40% lesions. THE RIGHT CORONARY ARTERY: This is a dominant vessel giving rise to good-sized PDA and PLV. The right coronary artery has mild diffuse disease without any critical lesions. LEFT VENTRICULOGRAPHY: This revealed normal-sized cardiac silhouette with good systolic function. FINAL IMPRESSION: Critical lesion involving the mid LAD involving a long segment. Noncritical lesion involving the left main and also circumflex. PLAN: Stent placement of the LAD to be done by Dr. Escobedo . PROGNOSIS: Fair
[2016-10-02] MEDS ORDERED: HYDROmorphone 2 MG/ML 1 ML SYRINGE ONE (12:33)
[2016-10-02] MEDS ORDERED: CLOPIDOGREL 75 MG TAB ONE ×2 (12:33→12:37)
[2016-10-02] MEDS ORDERED: BIVALIRUDIN BOLUS 250 MG/50 ML IV ONE (12:40)
[2016-10-02] MEDS ORDERED: CLOPIDOGREL 75 MG TAB PO ONE (12:41)
[2016-10-02] MEDS ORDERED: BIVALIRUDIN 250 MG in SODIUM CHLORIDE 0.9% 50 ML IV ONE (12:42)
[2016-10-02] MEDS ORDERED: NITROGLYCERIN 1000MCG/10ML SYRINGE INTRACORON ONE (12:45)
[2016-10-02] MEDS ORDERED: IOHEXOL 350 MG/ML 125ML BOTTLE INJ ONE (13:01)
[2016-10-02] MEDS ORDERED: ZOLPIDEM 5 MG TAB PO PRN (13:09)
[2016-10-02] MEDS ORDERED: ATROPINE SULFATE 0.1 MG/ML 10ML SYRINGE IV PRN (13:09)
[2016-10-02] MEDS ORDERED: RX INFO: IV CONTRAST WAS GIVEN 1 EACH MISC MISCELLANE PRN (13:09)
[2016-10-02] MEDS ORDERED: NITROGLYCERIN SL TABS 0.4 MG TAB SUBLINGUAL PRN (13:09)
[2016-10-02] MEDS ORDERED: MAG HYDROX/AL HYDROX/SIMETH 30 ML CUP PO PRN (13:09)
[2016-10-02] MEDS ORDERED: SODIUM CHLORIDE 0.9% 1,000 ML IV SCH (13:15)
--- NOTE | 2016-10-02 13:47 | P.PN ---
<Lakeisha Johnston A - Last Filed: 10/02/16 13:45> Subjective This is a 51-year-old male one of Dr. [address] with a previous medical history significant for CAD post-[place] back in 1987, hypertension and hypertensive cardio vascular disease, hyperlipidemia, osteoarthritis both shoulders and both knees along with complex regional pain syndrome involving the left foot, patient was in his usual state of health until about yesterday when he woke up at around 5:00 in the morning with left-sided chest pain was described as a sharp pain radiating to the neck associated with increased shortness breath at the same time he felt a bit nauseated, subsequently patient developed to have an increased pain this afternoon and he was described as stabbing pain associated with numbness in the left side of the chest patient stated that he usually. Much active he walk on a treadmill for 30 minutes on a daily basis without any chest pain but he does competitive palpitation in the end of the exercise, patient ended up coming to the ER had a twelve-lead EKG that showed normal sinus rhythm, cardiac enzymes were negative there is no ST-T wave changes , however because of his presentation he was admitted to the hospital as an observation he was placed on aspirin, heparin, nitroglycerin paste, and the cardiology consultation tomorrow morning. 10/02: Patient was seen by business change manager and underwent heart catheterization with Dr. Montelongo with critical lesion involving the mid LAD and a noncritical lesion in the left main and circumflex. Stent placement was to be done in the LAD by Dr. Escobedo. Objective - Vital Signs Vital signs: Vital Signs Temp 97.9 F 10/02/16 08:00 Pulse 60 10/02/16 08:00 Resp 18 10/02/16 08:00 BP 136/98 10/02/16 08:00 Pulse Ox 95 10/02/16 08:00 Intake & Output 10/01/16 10/02/16 10/02/16 18:59 06:59 18:59 Intake Total 347.766 Balance 347.766 Weight 112.9 kg Intake: IV 220 0.9@20 100 Heparin Sodium,Porcine/ 120 D5w Pmx 25,000 unit In Dextrose/Water 1 500ml. bag @ 9.2 UNITS/KG/HR 19. 86 mls/hr IV .Q24H [facility] Rx #:[id number] Intake, IV Titration 127.766 Amount Heparin Sodium,Porcine/ 127.766 D5w Pmx 25,000 unit In Dextrose/Water 1 500ml. bag @ 9.2 UNITS/KG/HR 19. 86 mls/hr IV .Q24H [facility] Rx #:[id number] Other: Voiding Method Toilet Toilet # Voids 2 - Exam General appearance: average body habitus, mild distress - EENT Eyes: EOMI, PERRLA, no ptosis, no scleral icterus, normal appearance ENT: hearing grossly normal, NA/AT, normal oropharynx, no thrush Ears: bilateral: normal - Neck Neck: no lymphadenopathy, normal ROM, no rigidity, no stridor, no thyromegaly Carotids: bilateral: upstroke normal Thyroid: bilateral: normal size - Respiratory Respiratory: bilateral: diminished, rhonchi, negative: dullness, rales, wheezing , prolonged expiration - Cardiovascular Rhythm: regular Heart sounds: normal: S1, S2 Abnormal Heart Sounds: no systolic murmur, no diastolic murmur, no rub, no S3 Gallop, no S4 Gallop, no click - Gastrointestinal General gastrointestinal: normal bowel sounds, soft, no splenomegaly, tenderness (Left lower quadrant), umbilical hernia, ventral hernia - Genitourinary Male genitourinary: enlarged prostate - Integumentary Integumentary: normal, normal turgor - Neurologic Neurologic: CNII-XII intact, focal deficits (Left foot with decreased range of motion.) - Musculoskeletal Musculoskeletal: gait normal, strength equal bilaterally - Psychiatric Psychiatric: A&O x's 3, appropriate affect, intact judgment & insight - Labs CBC & Chem 7: 10/02/16 04:50 10/02/16 04:50 Labs: Abnormal Lab Results - Last 24 Hours (Table) 10/01/16 10/01/16 10/02/16 Range/Units 22:28 22:28 04:50 APTT 31.4 H (22.0-30.0) sec Glucose (74-99) mg/dL Total Creatine Kinase 36 L 35 L (55-170) U/L Cholesterol (<200) mg/dL LDL Cholesterol, Calc (0-99) mg/dL 10/02/16 10/02/16 Range/Units 04:50 04:50 APTT 51.3 H (22.0-30.0) sec Glucose 111 H (74-99) mg/dL Total Creatine Kinase (55-170) U/L Cholesterol 212 H (<200) mg/dL LDL Cholesterol, Calc 141 H (0-99) mg/dL Assessment and Plan Plan: 1. Chest pain likely noncardiac however he does have a few risk factor for CAD including an [place] in the past, chronic tobacco use and dependence, hypertension, hyperlipidemia, as well as age and gender, family history, start heparin drip, aspirin 325 mg orally once every day, nitroglycerin paste 1 inch every 6 hours, Lipitor 80 mg orally once every day, metoprolol 50 mg orally twice every day, cardiology consultation, cardiac enzymes 3 every 8 hours. 2. History of CAD post [place] in the past. Continue aspirin 325 mg once every day , metoprolol 50 mg orally twice every day, Lipitor 80 mg orally once every day. 3. Hypertension and hypertensive cardiovascular disease. Continue metoprolol 50 mg orally twice every day. 4. Hyperlipidemia. Continue patient on Lipitor 80 mg orally once every day. 5. Osteoarthritis of both shoulders and both knees. Continue current pain management. 6. Complex regional pain syndrome. Stable at this point in time. 7. Chronic tobacco use and dependence. Patient was counseled on smoking cessation and increased risk of CAD, CVA, and malignancy, we will start the patient on nicotine patch 14 mg daily. 8. DVT prophylaxis. Currently on heparin drip. 9. GI prophylaxis. Continue patient on PPI. 10. Full code. Discharge plan: Home tomorrow Impression and plan of care have been directed as dictated by the signing physician. Lakeisha Johnston nurse practitioner acting as scribe for signing physician. Time with Patient: Greater than 30 <Horace Dawson - Last Filed: 10/02/16 15:55> Objective - Vital Signs Vital signs: Vital Signs Temp 97.9 F 10/02/16 08:00 Pulse 62 10/02/16 15:03 Resp 16 10/02/16 15:03 BP 127/84 10/02/16 15:03 Pulse Ox 95 10/02/16 15:03 Intake & Output 10/01/16 10/02/16 10/02/16 18:59 06:59 18:59 Intake Total 347.766 977.3 Output Total 500 Balance 347.766 477.3 Weight 112.9 kg Intake: IV 220 977.3 0.9@20 100 Heparin Sodium,Porcine/ 120 D5w Pmx 25,000 unit In Dextrose/Water 1 500ml. bag @ 9.2 UNITS/KG/HR 19. 86 mls/hr IV .Q24H [facility] Rx #:[id number] Sodium Chloride 0.9% 1, 200 000 ml @ 100 mls/hr IV . Q10H [facility] Rx#:[id number] Intake, IV Titration 127.766 Amount Heparin Sodium,Porcine/ 127.766 D5w Pmx 25,000 unit In Dextrose/Water 1 500ml. bag @ 9.2 UNITS/KG/HR 19. 86 mls/hr IV .Q24H [facility] Rx #:[id number] Output: Urine 500 Other: Voiding Method Toilet Toilet # Voids 2 - Labs CBC & Chem 7: 10/02/16 04:50 10/02/16 04:50 Labs: Abnormal Lab Results - Last 24 Hours (Table) 10/01/16 10/01/16 10/02/16 Range/Units 22:28 22:28 04:50 APTT 31.4 H (22.0-30.0) sec Glucose (74-99) mg/dL Total Creatine Kinase 36 L 35 L (55-170) U/L Cholesterol (<200) mg/dL LDL Cholesterol, Calc (0-99) mg/dL 10/02/16 10/02/16 Range/Units 04:50 04:50 APTT 51.3 H (22.0-30.0) sec Glucose 111 H (74-99) mg/dL Total Creatine Kinase (55-170) U/L Cholesterol 212 H (<200) mg/dL LDL Cholesterol, Calc 141 H (0-99) mg/dL
[2016-10-02] MEDS: PANTOPRAZOLE 40 MG TABLET PO SCH (18:15)
[2016-10-02] MEDS: METOPROLOL TARTRATE 50 MG TAB PO SCH ×2 (18:15→19:56)
[2016-10-02] MEDS: NICOTINE 14MG/24HR PATCH TRANSDERM SCH ×2 (18:15→20:57)
--- NOTE | 2016-10-02 22:25 | PTCA ---
DATE OF SERVICE: Mr. Perez is a 51-year-old male who presented with symptoms of unstable angina. He underwent cardiac catheterization by Dr. Montelongo, was found to have critical stenosis involving a long segment of the mid LAD. In view of that, recommendations were made regarding angioplasty and stenting. The procedure as well as risks and complications, were discussed with the patient, who is in full understanding in full understanding and agreement. PROCEDURE: A 6 Kazakh 3-1/2 [place] guiding catheter introduced in the system. After cannulating the left main, a 0.014 balanced medium weight J-wire was advanced across the lesion, positioned distally. Then a 2.75 x 33 mm Xience Alpine stent was deployed, postdilated at 14 atmospheres. After the last inflation, after appropriate wait, the balloon and the guidewire were withdrawn back in the guiding catheter. Images were obtained repeated. Those images revealed stable successful stenting. At that point, the guiding catheter, the balloon and the guidewire were removed. The sheath was removed. Hemostasis was obtained with deployment of TR band. There were no immediate complications. Patient was returned to his room in stable condition. Of note, the patient had chest discomfort and EKG changes with the inflation that resolved at the end of the procedure. He received Angiomax per protocol as well as oral loading dose of clopidogrel. RESULTS: Successful stenting of the long segment of the mid LAD with reduction in stenosis from 80% to 0%. DURATION OF THE PROCEDURE: 19 minutes. RECOMMENDATIONS: Patient will be continued on aspirin, Plavix, beta ej, JÚNIOR inhibitor and statin. The importance of dual antiplatelet treatment was discussed with the patient and his family, who are in full understanding and agreement.
--- NOTE | 2016-10-02 22:31 | LTR ---
October 02, 2016 RE: Kwaku Perez Dear Dr. Way: I had the pleasure to perform coronary angioplasty and stenting on Mr. Perez at [facility] on the 02 of October and a full copy of the procedure note will be forwarded to you. In brief, he underwent successful stenting of the mid LAD using a drug-eluting stent. I am hopeful that this procedure will stabilize his status. thank you again for allowing me to participate in this patient's care. Please feel free to call for questions. Sincerely yours, GERSON KHAN MD
[2016-10-03 04:52] VITALS: TEMP 97.2
[2016-10-03 06:37] LABS: Mean Platelet Volume 7.2
[2016-10-03] MEDS: PANTOPRAZOLE 40 MG TABLET PO SCH (06:42)
[2016-10-03 06:55] LABS: Anion Gap 6 mmol/L; Blood Urea Nitrogen 15 mg/dL (9-20); Calcium 9.4 mg/dL (8.4-10.2); Carbon Dioxide 25 mmol/L (22-30); Chloride 108 mmol/L (98-107); Glucose 97 mg/dL (74-99); Non-African American GFR(MDRD) >60 (>60 ml/min/1.73 sqM); Potassium 4.5 mmol/L (3.5-5.1); Sodium 139 mmol/L (137-145)
[2016-10-03 08:25] VITALS: RESP 18
[2016-10-03] MEDS ORDERED: ASPIRIN 81 MG CHEW PO SCH (09:00)
[2016-10-03] MEDS: METOPROLOL TARTRATE 50 MG TAB PO SCH (09:10)
--- NOTE | 2016-10-03 09:21 | P.PN ---
Subjective Principal diagnosis: LAD stent This is a 51-year-old gentleman with known history of coronary artery disease and prior myocardial infarction, hypertension, hyperlipidemia, who presented to the hospital with symptoms of chest discomfort. He was taken to the cardiac catheterization lab by Dr. Montelongo and subsequently underwent angioplasty and stenting of the LAD by Dr. Escobedo. The patient was seen and examined this morning, denies any chest pain or difficulty in breathing. He has been up ambulating without any difficulty. EKG this morning shows normal sinus rhythm with no changes from post-PCI. Blood pressure 140/90, heart rate in the 80s. CBC normal. Potassium 4.5, BUN 15, creatinine 1.0. We will add a small dose of lisinopril to his medication regime. Objective - Vital Signs Vital signs: Vital Signs Temp 97.2 F L 10/03/16 08:00 Pulse 81 10/03/16 08:00 Resp 18 10/03/16 08:00 BP 145/95 10/03/16 08:00 Pulse Ox 96 10/03/16 08:00 Intake & Output 10/02/16 10/03/16 10/03/16 18:59 06:59 18:59 Intake Total 1097.3 240 Output Total 650 Balance 447.3 240 Intake: IV 977.3 Sodium Chloride 0.9% 1, 200 000 ml @ 100 mls/hr IV . Q10H KOFI Rx#:[id number] Oral 120 240 Output: Urine 650 Other: Voiding Method Toilet Toilet # Voids 2 1 0 - Exam PHYSICAL EXAMINATION: HEENT: Head is atraumatic, normocephalic. Pupils equal, round. Neck is supple. There is no elevated jugular venous pressure. HEART EXAMINATION: Heart S1, S2 normal. No murmur or gallop heard. CHEST EXAMINATION: Lungs are clear to auscultation and precussion. No chest wall tenderness is noted on palpation or with deep breathing. ABDOMEN: Soft, nontender. Bowel sounds are heard. No organomegaly noted. Right radial site clean and dry, good distal pulse. EXTREMITIES: 2+ peripheral pulses with no evidence of peripheral edema and no calf tenderness noted. NEUROLOGIC patient is awake, alert and oriented -3. . - Labs CBC & Chem 7: 10/03/16 06:10 10/03/16 06:10 Labs: Abnormal Lab Results - Last 24 Hours (Table) 10/03/16 Range/Units 06:10 Chloride 108 H (98-107) mmol/L Assessment and Plan (1) Presence of stent in LAD coronary artery Status: Acute (2) HTN (hypertension) Status: Acute (3) Hyperlipemia Status: Acute (4) Family history of ischemic heart disease Status: Acute (5) History of coronary artery disease Status: Acute (6) Smoking Status: Acute Plan: From cardiology's perspective, patient should be able to be discharged home today. We'll make him a follow-up appointment with Dr. Montelongo in the office post discharge. Patient will be discharged home on aspirin 81 mg daily, Lipitor 80 mg daily, Plavix 75 mg daily, metoprolol tartrate 50 mg one tablet by mouth twice a day, nicotine patch, we will add lisinopril 2.5 mg 1 tablet daily to his medication regime. Sublingual nitroglycerin as needed for chest pain. A follow-up appointment will be made with Dr. Motnelongo in the office one week post discharge. DNP note has been reviewed, I agree with a documented findings and plan of care. Patient was seen and examined.
[2016-10-03] MEDS ORDERED: LISINOPRIL 2.5 MG TAB PO SCH (09:30)
[2016-10-03] MEDS ORDERED: CLOPIDOGREL 75 MG TAB PO SCH (12:00)
[2016-10-03 12:11] VITALS: BP 138/97; PULSE 60
[2016-10-03] MEDS: SODIUM CHLORIDE 0.9% 1,000 ML IV SCH (12:59)
== END 2016-10-03 13:19 | disposition home or self-care (01) | DRG 247 ==
LOC: EC 15:33 → 3OBS 16:10 → OBSVTOIN 16:10 → 3OBS 17:15 → 6SEL 10-02 14:31
PROVIDERS: ADMIT Internal Medicine Geriatric Medicine; ATTEND Internal Medicine Geriatric Medicine
PROC: 027034Z Dilation of Coronary Artery, One Artery with Drug-eluting Intraluminal Device, Percutaneous Approach (ICD-10-PCS; 2016-10-02)
PROC: B2151ZZ Fluoroscopy of Left Heart using Low Osmolar Contrast (ICD-10-PCS; principal; 2016-10-02 11:40)
PROC: 4A023N7 Measurement of Cardiac Sampling and Pressure, Left Heart, Percutaneous Approach (ICD-10-PCS; principal; 2016-10-02 11:40)
PROC: B2111ZZ Fluoroscopy of Multiple Coronary Arteries using Low Osmolar Contrast (ICD-10-PCS; principal; 2016-10-02 11:40)
DX: I25.110 Atherosclerotic heart disease of native coronary artery with unstable angina pectoris (principal); I11.9 Hypertensive heart disease without heart failure; K21.9 Gastro-esophageal reflux disease without esophagitis; M19.012 Primary osteoarthritis, left shoulder; M19.011 Primary osteoarthritis, right shoulder; F17.200 Nicotine dependence, unspecified, uncomplicated; E78.5 Hyperlipidemia, unspecified; I25.2 Old myocardial infarction; Z79.82 Long term (current) use of aspirin; Z79.899 Other long term (current) drug therapy; Z82.49 Family history of ischemic heart disease and other diseases of the circulatory system
CPT/HCPCS: 36415; 71020; 80048; 80053; 80061; 82550; 82553; 83690; 83735; 84484; 85025; 85049; 85610; 85730; 93005; 93458; 96365; 96376; 99291

== ENCOUNTER → 2016-10-20 | Outpatient (CLI) | payer MEDICARE ==
--- NOTE | 2016-10-20 09:48 | CT ---
EXAMINATION TYPE: CT chest wo con DATE OF EXAM: 10/20/2016 9:39 AM COMPARISON: Chest radiograph 10/01/2016 HISTORY: Lung Nodule CT DLP: 575.[address] of the chest was performed with lung and mediastinal window settings submitted. The la ck of contrast limits evaluation of the vascular, mediastinal and parenchymal structures including th e upper abdomen. LUNGS: The lungs are clear and free of infiltrate. No atelectasis. No pulmonary nodule or mass is de tected. Nodule seen on chest radiograph reflects right-sided skin tag or nipple. Mild parenchymal sc arring right middle lobe. No pleural effusion. No CT evidence of interstitial lung disease. MEDIASTINUM/JOSE: Thoracic aorta is of normal caliber with limited evaluation given lack of contrast . The heart is not enlarged. LAD calcification. Small hiatal hernia. No evidence for mediastinal ma ss. No lymph nodes greater than 1cm. UPPER ABDOMEN: No significant abnormality is seen. OTHER: No significant other abnormality. IMPRESSION: 1. No evidence for pulmonary nodule.
== END | disposition home or self-care (01) ==
LOC: RADCTMAIN 09:12
PROVIDERS: ATTEND Internal Medicine Geriatric Medicine
DX: R91.1 Solitary pulmonary nodule (principal)
CPT/HCPCS: 71250

== ENCOUNTER → 2017-07-30 | Outpatient (CLI) | payer MEDICARE ==
--- NOTE | 2017-07-30 15:27 | US ---
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 Abnormal labs of parathyroid GLAND SIZE: Right Lobe: 4.9 x 1.5 x 2.0 cm Overall Parenchyma: heterogenous Left Lobe: 4.4 x 1.6 x 1.6 cm Overall Parenchyma: heterogeneous Isthmus Thickness: 0.4 cm Inferior to right thyroid possible parathyroid= 1.1 x 0.9 x 1.3 cm, solid with vascularity LEFT: # of nodules measured on left: 2 1. 0.4 X 0.4 x 0.3 cm hypoechoic solid nodule at the lower pole with well-defined margins; This no dule is wider than tall and shows intranodular vascularity. Prior size: No prior 2. 0.4 X 0.3 x 0.3 cm cystic nodule at the mid pole with well-defined margins; This nodule is wide r than tall and shows no intranodular vascularity. Prior size: No prior Bilateral neck scanned, no evidence of lymphadenopathy. Sub-centimeter nodules left thyroid with mass at the inferior margin of the right thyroid gland possibly representing an abnormal right parathyroi d visualized. IMPRESSION: 1. 1.3 cm mass at the inferior margin of the right thyroid gland and posterior to the thyroid gland s uspected to represent an abnormal parathyroid gland. Nuclear medicine parathyroid scan is recommended for further evaluation. 2. Subcentimeter left thyroid nodules for which surveillance is recommended.
== END | disposition home or self-care (01) ==
LOC: RADUSWWP 14:45
PROVIDERS: ATTEND Internal Medicine Geriatric Medicine
DX: E04.2 Nontoxic multinodular goiter (principal); E07.89 Other specified disorders of thyroid
CPT/HCPCS: 76536

== ENCOUNTER → 2017-11-08 | Outpatient (CLI) | payer MEDICARE ==
--- NOTE | 2017-11-08 15:16 | US ---
EXAMINATION TYPE: US mass soft tissue chest/back DATE OF EXAM: 11/08/2017 COMPARISON: NONE CLINICAL HISTORY: R22.9 Localized mass lump. soft tissue large soft palpable mass on the left upper c hest, increased in size, tender for the patient Scanned over the obvious palpable mass. 7.0 x 2.3 x 3.5cm intramuscular mass appears as a large lip omatous lesion with smoothly marginated borders and linear internal echogenicity. IMPRESSION: Intramuscular lipomatous lesion in the region of palpable abnormality in the left upper chest. Given the large size and interval increase in size per patient history enhanced MR is recommen ded to assess for enhancement.
== END | disposition home or self-care (01) ==
LOC: RADUSWWP 13:54
PROVIDERS: ATTEND Internal Medicine Geriatric Medicine
DX: D17.9 Benign lipomatous neoplasm, unspecified (principal)

== ENCOUNTER 2018-05-23 08:20 | Emergency (ER) | payer MEDICARE ==
[2018-05-23 08:52] VITALS: RESP 18
[2018-05-23] MEDS ORDERED: SODIUM CHLORIDE 0.9% 500 ML 500 ML IV STA (09:11)
[2018-05-23] MEDS ORDERED: KETOROLAC 30 MG/ML 1 ML VIAL IVP STA (09:11)
--- NOTE | 2018-05-23 09:15 | ED ---
General Adult HPI - General Chief complaint: Back Pain/Injury Stated complaint: Back pain/rash on knees Time Seen by Provider: 05/23/18 08:30 Source: patient, RN notes reviewed Mode of arrival: ambulatory Limitations: no limitations - History of Present Illness Initial comments: This is a 52-year-old male who presents emergency Department complaining of right sided CVA back pain that seems to radiate around to his testicle. Patient states is consistent with kidney stone pain he has had an aspirin patient states he believes he has had blood in his urine lately too. Patient denies any abdominal pain. Patient denies any fever chills. Patient denies any dysuria. Patient denies any chest pain difficulty breathing shortness of breath. She comes in also complaining of a rash on his bilateral knees which is been ongoing for 5 days. Patient states this burning and itching. Patient states he does not have any kneepads on he has not been on any carpet on his knees he states he does not know why he has a rash on his knees and only on his knees. Patient denies any erythematous streaking or worsening of the rash is pretty consistent and is been there again for 5 days. Patient denies any change in detergents or lotions patient denies any medication changes - Related Data Home Medications Medication Instructions Recorded Confirmed Omeprazole 40 mg PO DAILY 06/02/17 05/23/18 Furosemide [Lasix] 20 mg PO DAILY 05/23/18 05/23/18 Losartan [Cozaar] 25 mg PO DAILY 05/23/18 05/23/18 Metoprolol Tartrate [Lopressor] 50 mg PO BID 05/23/18 05/23/18 Potassium Chloride ER [K-Dur 10] 10 meq PO DAILY 05/23/18 05/23/18 Rosuvastatin Calcium [Crestor] 40 mg PO DAILY 05/23/18 05/23/18 Previous Rx's Medication Instructions Recorded Clopidogrel [Plavix] 75 mg PO DAILY #30 tab 10/03/16 Nitroglycerin Sl Tabs [Nitrostat] 0.4 mg SUBLINGUAL Q5M PRN #25 tab 10/03/16 Cephalexin [Keflex] 500 mg PO Q6HR #28 cap 05/23/18 Ketorolac [Toradol] 10 mg PO Q6HR #15 tab 05/23/18 Allergies Allergy/AdvReac Type Severity Reaction Status Date / Time latex Allergy Rash/Hives Verified 05/23/18 08:33 Review of Systems ROS Statement: Those systems with pertinent positive or pertinent negative responses have been documented in the HPI. ROS Other: All systems not noted in ROS Statement are negative. Past Medical History Past Medical History: Asthma, Coronary Artery Disease (CAD), Chest Pain / Angina , GERD/Reflux, Hyperlipidemia, Hypertension, Myocardial Infarction ([place]), Osteoarthritis (OA), Prostate Disorder, Skin Disorder Additional Past Medical History / Comment(s): palpitations, uticaria vasculitis, ReFlex sympathetic dystrophy syndrome (nerve disorder, has implanted device in lt hip). kidney stones Last Myocardial Infarction Date:: 1986 (was told but did not know) and 06-02-17 History of Any Multi-Drug Resistant Organisms: None Reported Past Surgical History: Heart Catheterization With Stent, Hernia Repair, Tonsillectomy Additional Past Surgical History / Comment(s): cystoscopy, device in left hip for rsd, 5x hernia sx5, tonsillectomy and adenoidectomy, colonoscopy. Past Anesthesia/Blood Transfusion Reactions: Family History of Problems w/ Anesthesia Additional Past Anesthesia/Blood Transfusion Reaction / Comment(s): mom had bp probelms after aa. hx of clausterphobia Date of Last Stent Placement:: 06/02/17 Past Psychological History: No Psychological Hx Reported Smoking Status: Current every day smoker Past Alcohol Use History: None Reported Past Drug Use History: None Reported - Past Family History Father Family Medical History: Cancer, Congestive Heart Failure (CHF) Additional Family Medical History / Comment(s): leukemia Mother Family Medical History: Dementia, Myocardial Infarction ([place]) Additional Family Medical History / Comment(s): pacemaker Brother(s) Family Medical History: Coronary Artery Disease (CAD) Sister(s) Family Medical History: Diabetes Mellitus Daughter(s) Family Medical History: No Reported History, Diabetes Mellitus Son(s) Family Medical History: No Reported History General Exam - General Exam Comments Initial Comments: GENERAL: Patient is well-developed and well-nourished. Patient is nontoxic and well- hydrated and is in mild distress. ENT: Neck is soft and supple. No significant lymphadenopathy is noted. Oropharynx is clear. Moist mucous membranes. Neck has full range of motion without eliciting any pain. EYES: The sclera were anicteric and conjunctiva were pink and moist. Extraocular movements were intact and pupils were equal round and reactive to light. Eyelids were unremarkable. PULMONARY: Unlabored respirations. Good breath sounds bilaterally. No audible rales rhonchi or wheezing was noted. CARDIOVASCULAR: There is a regular rate and rhythm without any murmurs gallops or rubs. ABDOMEN: Soft and nontender with normal bowel sounds. No palpable organomegaly was noted. There is no palpable pulsatile mass. SKIN: Multiple purpleish blanching solitary lesions on bilateral knees there does not appear to be any fluctuance. NEUROLOGIC: Patient is alert and oriented x3. Cranial nerves II through XII are grossly intact. Motor and sensory are also intact. Normal speech, volume and content. Symmetrical smile. MUSCULOSKELETAL: Normal extremities with adequate strength and full range of motion. Patient has no calf tenderness or leg swelling. Patient has no CVA tenderness LYMPHATICS: No significant lymphadenopathy is noted PSYCHIATRIC: Normal psychiatric evaluation. Limitations: no limitations Course Vital Signs 05/23/18 08:30 Temperature 97.9 F Pulse Rate 77 Respiratory 18 Rate Blood Pressure 152/97 O2 Sat by Pulse 100 Oximetry Medical Decision Making - Medical Decision Making Patient's CAT scan shows a 2 mm calcification in the bladder. Patient's pain has now resolved. Patient will be given antibiotic for the knee rash but he will need follow-up with his doctor further for that. - Lab Data Result diagrams: 05/23/18 09:27 05/23/18 09:27 Lab Results 05/23/18 05/23/18 05/23/18 Range/Units 09:27 09:27 09:29 WBC 8.9 (3.8-10.6) k/uL RBC 4.64 (4.30-5.90) m/uL Hgb 13.5 (13.0-17.5) gm/dL Hct 41.0 (39.0-53.0) % MCV 88.4 (80.0-100.0) fL MCH 29.0 (25.0-35.0) pg MCHC 32.8 (31.0-37.0) g/dL RDW 13.2 (11.5-15.5) % Plt Count 240 (150-450) k/uL Neutrophils % 72 % Lymphocytes % 21 % Monocytes % 4 % Eosinophils % 1 % Basophils % 0 % Neutrophils # 6.4 (1.3-7.7) k/uL Lymphocytes # 1.9 (1.0-4.8) k/uL Monocytes # 0.4 (0-1.0) k/uL Eosinophils # 0.1 (0-0.7) k/uL Basophils # 0.0 (0-0.2) k/uL Sodium 142 (137-145) mmol/L Potassium 4.7 (3.5-5.1) mmol/L Chloride 110 H (98-107) mmol/L Carbon Dioxide 25 (22-30) mmol/L Anion Gap 7 mmol/L BUN 17 (9-20) mg/dL Creatinine 0.83 (0.66-1.25) mg/dL Est GFR (CKD-EPI)AfAm >90 (>60 ml/min/1.73 sqM) Est GFR (CKD-EPI)NonAf >90 (>60 ml/min/1.73 sqM) Glucose 123 H (74-99) mg/dL Calcium 9.8 (8.4-10.2) mg/dL Total Bilirubin 0.6 (0.2-1.3) mg/dL AST 29 (17-59) U/L ALT 34 (21-72) U/L Alkaline Phosphatase 71 (38-126) U/L Total Protein 7.3 (6.3-8.2) g/dL Albumin 4.1 (3.5-5.0) g/dL Amylase 55 (30-110) U/L Lipase 55 (23-300) U/L Urine Color Yellow Urine Appearance Clear (Clear) Urine pH 6.0 (5.0-8.0) Ur Specific [place] 1.010 (1.001-1.035) Urine Protein Negative (Negative) Urine Glucose (UA) Negative (Negative) Urine Ketones Negative (Negative) Urine Blood Moderate H (Negative) Urine Nitrite Negative (Negative) Urine Bilirubin Negative (Negative) Urine Urobilinogen <2.0 (<2.0) mg/dL Ur Leukocyte Esterase Trace H (Negative) Urine RBC 22 H (0-5) /hpf Urine WBC 3 (0-5) /hpf Ur Squamous Epith Cells <1 (0-4) /hpf Urine Mucus Occasional H (None) /hpf Disposition Clinical Impression: Kidney stone, Rash Disposition: HOME SELF-CARE Instructions: Kidney Stones (ED), Acute Rash (ED) Prescriptions: Cephalexin [Keflex] 500 mg PO Q6HR #28 cap Ketorolac [Toradol] 10 mg PO Q6HR #15 tab Is patient prescribed a controlled substance at d/c from ED?: No Referrals: Andrade Way MD [Primary Care Provider] - 1-2 days Time of Disposition: 10:56
[2018-05-23 09:48] LABS: Basophils % (A) 0 %; Eosinophils # (A) 0.1 k/uL (0-0.7); Eosinophils % (A) 1 %; HGB 13.5 gm/dL (13.0-17.5); Lymphocytes # (A) 1.9 k/uL (1.0-4.8); Lymphocytes % (A) 21 %; MCHC 32.8 g/dL (31.0-37.0); MCV 88.4 fL (80.0-100.0); Mean Platelet Volume 7.4; Monocytes # (A) 0.4 k/uL (0-1.0); Monocytes % (A) 4 %; Neutrophils # (A) 6.4 k/uL (1.3-7.7); Neutrophils % (A) 72 %; Platelet Count 240 k/uL (150-450); RBC 4.64 m/uL (4.30-5.90); RDW 13.2 % (11.5-15.5); WBC 8.9 k/uL (3.8-10.6)
[2018-05-23 09:54] LABS: Appearance,Urine Clear (Clear); Bilirubin,Urine Negative (Negative); Blood,Urine Moderate (Negative); Color,Urine Yellow; Glucose,Urine (UA) Negative (Negative); Ketones,Urine Negative (Negative); Leukocyte Esterase,Urine Trace (Negative); Mucus,Urine Occasional /hpf; Nitrite,Urine Negative (Negative); Protein,Urine Negative (Negative); RBC,Urine 22 /hpf (0-5); Squamous Epithelial Cell,Urine <1 /hpf (0-4); Urobilinogen,Urine <2.0 mg/dL (<2.0); WBC,Urine 3 /hpf (0-5)
[2018-05-23 09:57] LABS: ALT 34 U/L (21-72); AST 29 U/L (17-59); Albumin 4.1 g/dL (3.5-5.0); Alkaline Phosphatase 71 U/L (38-126); Amylase 55 U/L (30-110); Anion Gap 7 mmol/L; Blood Urea Nitrogen 17 mg/dL (9-20); Calcium 9.8 mg/dL (8.4-10.2); Carbon Dioxide 25 mmol/L (22-30); Chloride 110 mmol/L (98-107); Glucose 123 mg/dL (74-99); Lipase 55 U/L (23-300); Potassium 4.7 mmol/L (3.5-5.1); Sodium 142 mmol/L (137-145); Total Bilirubin 0.6 mg/dL (0.2-1.3); Total Protein 7.3 g/dL (6.3-8.2)
--- NOTE | 2018-05-23 09:57 | XR ---
EXAMINATION TYPE: XR KUB DATE OF EXAM: 05/23/2018 CLINICAL DATA: 52 year-old male abdominal pain, PHH COMPARISON: None FINDINGS: Lung bases are clear. No evidence for free intraperitoneal air. No dilated small bowel or air-fluid levels. Scattered mild to moderate stool burden. No suspicious calcification seen. Generator device projects at the left hip with spinal stimulator array located in the lower thoracic spinal canal. IMPRESSION: Mild to moderate stool burden. No evidence of bowel obstruction or free intraperitoneal air.
--- NOTE | 2018-05-23 10:14 | CT ---
EXAMINATION TYPE: CT abdomen pelvis wo con DATE OF EXAM: 05/23/2018 COMPARISON: 07/31/1999 HISTORY: Right sided flank pain with hematuria and difficulty urinating CT DLP: 855.4 mGycm Automated exposure control for dose reduction was used. TECHNIQUE: Helical acquisition of images was performed from the lung bases through the pelvis. FINDINGS: LUNG BASES: Linear changes at the lung bases are noted suggestive of subsegmental atelectasis or scar . LIVER/GB: No significant abnormality is appreciated. PANCREAS: No significant abnormality is seen. SPLEEN: Splenic granuloma noted. ADRENALS: No significant abnormality is seen. KIDNEYS: There is mild right hydronephrosis. 3 mm lower pole renal calcification noted. URINARY BLADDER: 2 mm calcification the bladder noted ADENOPATHY: None visualized. OSSEOUS STRUCTURES: There is spinal stimulator device in the posterior soft tissue with leads noted in the lower thoracic spinal canal. Multilevel hypertrophic changes. BOWEL: No significant abnormality is seen. OTHER: Atherosclerotic change of the aortic aneurysm. The prostate gland is enlarged. IMPRESSION: 1. Mild right hydronephrosis with a 3 mm lower pole renal calcification. No ureteral calcification is seen. There is a 2 mm bladder calculus. Correlate for recently passed stone.
[2018-05-23 11:24] VITALS: BP 154/92; PULSE 70; TEMP 98
== END 2018-05-23 11:20 | disposition home or self-care (01) ==
LOC: EC 08:20
DX: N13.2 Hydronephrosis with renal and ureteral calculous obstruction (principal); R21 Rash and other nonspecific skin eruption; I25.119 Atherosclerotic heart disease of native coronary artery with unspecified angina pectoris; K21.9 Gastro-esophageal reflux disease without esophagitis; E78.5 Hyperlipidemia, unspecified; I10 Essential (primary) hypertension; I25.2 Old myocardial infarction; F17.200 Nicotine dependence, unspecified, uncomplicated; Z79.899 Other long term (current) drug therapy; Z91.040 Latex allergy status
CPT/HCPCS: 36415; 80053; 82150; 83690; 85025; 81001; 74018; 74176; 99284; 96374; 96361; J1885

== ENCOUNTER 2019-03-13 11:50 | Inpatient (IN) | payer MEDICARE ==
[2019-03-13] MEDS ORDERED: NITROGLYCERIN-D5W PMX 50 MG in DEXTROSE/WATER 1 250ML.BAG IV ONE (12:12)
[2019-03-13] MEDS ORDERED: SODIUM CHLORIDE 0.9% 500 ML 500 ML IV ONE (12:14)
--- NOTE | 2019-03-13 12:19 | ED ---
General Adult HPI - General Chief complaint: Chest Pain Stated complaint: chest pain Time Seen by Provider: 03/13/19 11:50 Source: patient, RN notes reviewed Mode of arrival: ambulatory Limitations: no limitations - History of Present Illness Initial comments: This is a 53-year-old male who presents emergency room complaining of some anterior left-sided chest pain. Patient states it started about one hour ago. Patient states the pain radiates to his left arm and up into his neck. Patient states very similar to when he had a heart attack in the past per patient states became diaphoretic and also short of breath per patient denies any nausea. Gene an states he took 4 nitro's and 5 aspirin and his pain has not been relieved. Patient denies any recent fever chills or cough. Patient denies abdominal pain. Patient denies any vomiting or diarrhea. Patient denies any lightheadedness dizziness or near syncopal episode. Patient denies headache patient denies numbness weakness. Patient denies any leg swelling or calf tenderness. - Related Data Home Medications Medication Instructions Recorded Confirmed Omeprazole 40 mg PO DAILY 06/02/17 03/13/19 Furosemide [Lasix] 20 mg PO DAILY 05/23/18 03/13/19 Losartan [Cozaar] 25 mg PO DAILY 05/23/18 03/13/19 Metoprolol Tartrate [Lopressor] 50 mg PO BID 05/23/18 03/13/19 Potassium Chloride ER [K-Dur 10] 10 meq PO DAILY 05/23/18 03/13/19 Rosuvastatin Calcium [Crestor] 40 mg PO HS 05/23/18 03/13/19 Previous Rx's Medication Instructions Recorded Clopidogrel [Plavix] 75 mg PO DAILY #30 tab 10/03/16 Nitroglycerin Sl Tabs [Nitrostat] 0.4 mg SUBLINGUAL Q5M PRN #25 tab 10/03/16 Allergies Allergy/AdvReac Type Severity Reaction Status Date / Time latex Allergy Rash/Hives Verified 03/13/19 12:18 Review of Systems ROS Statement: Those systems with pertinent positive or pertinent negative responses have been documented in the HPI. ROS Other: All systems not noted in ROS Statement are negative. Past Medical History Past Medical History: Asthma, Coronary Artery Disease (CAD), Chest Pain / Angina, GERD/Reflux, Hyperlipidemia, Hypertension, Myocardial Infarction (DE), O steoarthritis (OA), Prostate Disorder, Skin Disorder Additional Past Medical History / Comment(s): palpitations, uticaria vasculitis,ReFlex sympathetic dystrophy syndrome (nerve disorder, has implanted device in lt hip). kidney stones Last Myocardial Infarction Date:: 1986 (was told but did not know) and 06-02-17 History of Any Multi-Drug Resistant Organisms: None Reported Past Surgical History: Heart Catheterization With Stent, Hernia Repair, Tonsillectomy Additional Past Surgical History / Comment(s): cystoscopy, device in left hip for rsd, 5x hernia sx5, tonsillectomy and adenoidectomy, colonoscopy. Past Anesthesia/Blood Transfusion Reactions: Family History of Problems w/ Anesthesia Additional Past Anesthesia/Blood Transfusion Reaction / Comment(s): mom had bp probelms after aa. hx of clausterphobia Date of Last Stent Placement:: 06/02/17 Past Psychological History: No Psychological Hx Reported Smoking Status: Current every day smoker Past Alcohol Use History: None Reported Past Drug Use History: None Reported - Past Family History Father Family Medical History: Cancer, Congestive Heart Failure (CHF) Additional Family Medical History / Comment(s): leukemia Mother Family Medical History: Dementia, Myocardial Infarction (DE) Additional Family Medical History / Comment(s): pacemaker Brother(s) Family Medical History: Coronary Artery Disease (CAD) Sister(s) Family Medical History: Diabetes Mellitus Daughter(s) Family Medical History: No Reported History, Diabetes Mellitus Son(s) Family Medical History: No Reported History General Exam - General Exam Comments Initial Comments: GENERAL: Patient is well-developed and well-nourished. Patient is nontoxic and well- hydrated and is in mild distress. ENT: Neck is soft and supple. No significant lymphadenopathy is noted. Oropharynx is clear. Moist mucous membranes. Neck has full range of motion without eliciting any pain. EYES: The sclera were anicteric and conjunctiva were pink and moist. Extraocular movements were intact and pupils were equal round and reactive to light. Eyelids were unremarkable. PULMONARY: Unlabored respirations. Good breath sounds bilaterally. No audible rales rhonchi or wheezing was noted. CARDIOVASCULAR: There is a regular rate and rhythm without any murmurs gallops or rubs. ABDOMEN: Soft and nontender with normal bowel sounds. No palpable organomegaly was noted. There is no palpable pulsatile mass. SKIN: Skin is clear with no lesions or rashes and otherwise unremarkable. NEUROLOGIC: Patient is alert and oriented x3. Cranial nerves II through XII are grossly intact. Motor and sensory are also intact. Normal speech, volume and content. Symmetrical smile. MUSCULOSKELETAL: Normal extremities with adequate strength and full range of motion. No lower extremity swelling or edema. No calf tenderness. LYMPHATICS: No significant lymphadenopathy is noted PSYCHIATRIC: Normal psychiatric evaluation. Limitations: no limitations Course Vital Signs 03/13/19 03/13/19 03/13/19 11:52 11:59 12:00 Temperature 97.7 F Pulse Rate 118 H 105 H 105 H Respiratory 17 12 15 Rate Blood Pressure 146/92 O2 Sat by Pulse 99 97 98 Oximetry 03/13/19 03/13/19 03/13/19 12:30 13:00 13:03 Temperature Pulse Rate 130 H 73 Respiratory 17 16 Rate Blood Pressure 154/96 181/86 137/89 O2 Sat by Pulse 99 Oximetry 03/13/19 03/13/19 03/13/19 13:30 13:50 14:00 Temperature Pulse Rate 85 85 85 Respiratory 17 17 16 Rate Blood Pressure 137/89 153/84 153/84 O2 Sat by Pulse 100 98 100 Oximetry 03/13/19 03/13/19 03/13/19 14:30 15:00 15:30 Temperature Pulse Rate 85 75 74 Respiratory 14 16 17 Rate Blood Pressure 151/92 169/106 145/93 O2 Sat by Pulse 99 99 99 Oximetry Medical Decision Making - Medical Decision Making EKG shows normal sinus rhythm at 100 bpm TX interval 250 QRS is 92 QT interval 362 QTC is 466. Patient's EKG shows some ST segment depression in the inferior leads II, III, and F aVF. There is no ST segment elevation noted patient has slight ST segment depression as well in V5 and V6. Patient was started on nitroglycerin drip. Patient started having more pain. EKG was repeated. EKG showed normal sinus rhythm at 87 bpm TX interval is 162 QRS is 92 QT interval 376 QTC is 452. Patient's EKG shows same ST segment depression in the inferior leads and precordial leads V3 through V6 Patient was placed on heparin. Chest x-ray shows no acute normalities. I spoke with Dr. Way he agreed to be the patient admitted the patient I wrote admitting orders I consult cardiology. I continued heparin and aspirin and nitro glycerin drip on the floor - Lab Data Result diagrams: 03/13/19 12:22 03/13/19 12:22 Lab Results 03/13/19 03/13/19 03/13/19 Range/Units 12:22 12:22 12:22 WBC 7.8 (3.8-10.6) k/uL RBC 4.87 (4.30-5.90) m/uL Hgb 14.3 (13.0-17.5) gm/dL Hct 45.0 (39.0-53.0) % MCV 92.3 (80.0-100.0) fL MCH 29.4 (25.0-35.0) pg MCHC 31.8 (31.0-37.0) g/dL RDW 13.1 (11.5-15.5) % Plt Count 298 (150-450) k/uL Neutrophils % 50 % Lymphocytes % 37 % Monocytes % 7 % Eosinophils % 3 % Basophils % 1 % Neutrophils # 3.9 (1.3-7.7) k/uL Lymphocytes # 2.9 (1.0-4.8) k/uL Monocytes # 0.5 (0-1.0) k/uL Eosinophils # 0.2 (0-0.7) k/uL Basophils # 0.1 (0-0.2) k/uL PT 9.7 (9.0-12.0) sec INR 0.9 (<1.2) APTT 23.9 (22.0-30.0) sec Sodium 140 (137-145) mmol/L Potassium 3.6 (3.5-5.1) mmol/L Chloride 103 (98-107) mmol/L Carbon Dioxide 26 (22-30) mmol/L Anion Gap 11 mmol/L BUN 16 (9-20) mg/dL Creatinine 0.89 (0.66-1.25) mg/dL Est GFR (CKD-EPI)AfAm >90 (>60 ml/min/1.73 sqM) Est GFR (CKD-EPI)NonAf >90 (>60 ml/min/1.73 sqM) Glucose 95 (74-99) mg/dL Calcium 10.0 (8.4-10.2) mg/dL Magnesium 1.9 (1.6-2.3) mg/dL Total Bilirubin 0.5 (0.2-1.3) mg/dL AST 37 (17-59) U/L ALT 49 (21-72) U/L Alkaline Phosphatase 82 (38-126) U/L Troponin I (0.000-0.034) ng/mL Total Protein 8.1 (6.3-8.2) g/dL Albumin 4.6 (3.5-5.0) g/dL 03/13/19 Range/Units 12:22 WBC (3.8-10.6) k/uL RBC (4.30-5.90) m/uL Hgb (13.0-17.5) gm/dL Hct (39.0-53.0) % MCV (80.0-100.0) fL MCH (25.0-35.0) pg MCHC (31.0-37.0) g/dL RDW (11.5-15.5) % Plt Count (150-450) k/uL Neutrophils % % Lymphocytes % % Monocytes % % Eosinophils % % Basophils % % Neutrophils # (1.3-7.7) k/uL Lymphocytes # (1.0-4.8) k/uL Monocytes # (0-1.0) k/uL Eosinophils # (0-0.7) k/uL Basophils # (0-0.2) k/uL PT (9.0-12.0) sec INR (<1.2) APTT (22.0-30.0) sec Sodium (137-145) mmol/L Potassium (3.5-5.1) mmol/L Chloride (98-107) mmol/L Carbon Dioxide (22-30) mmol/L Anion Gap mmol/L BUN (9-20) mg/dL Creatinine (0.66-1.25) mg/dL Est GFR (CKD-EPI)AfAm (>60 ml/min/1.73 sqM) Est GFR (CKD-EPI)NonAf (>60 ml/min/1.73 sqM) Glucose (74-99) mg/dL Calcium (8.4-10.2) mg/dL Magnesium (1.6-2.3) mg/dL Total Bilirubin (0.2-1.3) mg/dL AST (17-59) U/L ALT (21-72) U/L Alkaline Phosphatase (38-126) U/L Troponin I 0.017 (0.000-0.034) ng/mL Total Protein (6.3-8.2) g/dL Albumin (3.5-5.0) g/dL Critical Care Time Critical Care Time: Yes Total Critical Care Time: 35 Disposition Clinical Impression: Unstable angina pectoris Disposition: ADMITTED IP TO THIS HOSP Referrals: Andrade Way MD [Primary Care Provider] - 1-2 days Time of Disposition: 15:56
[2019-03-13 12:50] LABS: ALT 49 U/L (21-72); AST 37 U/L (17-59); African American GFR (CKD) >90 (>60 ml/min/1.73 sqM); Albumin 4.6 g/dL (3.5-5.0); Alkaline Phosphatase 82 U/L (38-126); Anion Gap 11 mmol/L; Blood Urea Nitrogen 16 mg/dL (9-20); Carbon Dioxide 26 mmol/L (22-30); Chloride 103 mmol/L (98-107); Glucose 95 mg/dL (74-99); INR 0.9 (<1.2); Magnesium 1.9 mg/dL (1.6-2.3); Partial Thromboplastin Time 23.9 sec (22.0-30.0); Potassium 3.6 mmol/L (3.5-5.1); Prothrombin Time 9.7 sec (9.0-12.0); Sodium 140 mmol/L (137-145); Total Bilirubin 0.5 mg/dL (0.2-1.3); Total Protein 8.1 g/dL (6.3-8.2)
[2019-03-13 12:51] LABS: Basophils # (A) 0.1 k/uL (0-0.2); Basophils % (A) 1 %; Eosinophils # (A) 0.2 k/uL (0-0.7); Eosinophils % (A) 3 %; HGB 14.3 gm/dL (13.0-17.5); Lymphocytes # (A) 2.9 k/uL (1.0-4.8); Lymphocytes % (A) 37 %; MCH 29.4 pg (25.0-35.0); MCHC 31.8 g/dL (31.0-37.0); MCV 92.3 fL (80.0-100.0); Mean Platelet Volume 7.7; Monocytes # (A) 0.5 k/uL (0-1.0); Monocytes % (A) 7 %; Neutrophils # (A) 3.9 k/uL (1.3-7.7); Neutrophils % (A) 50 %; Platelet Count 298 k/uL (150-450); RBC 4.87 m/uL (4.30-5.90); RDW 13.1 % (11.5-15.5); WBC 7.8 k/uL (3.8-10.6)
[2019-03-13] MEDS ORDERED: HEPARIN SODIUM,PORCINE 5,000 UNIT/ML 1 ML VIAL IV ONE (13:40)
[2019-03-13] MEDS ORDERED: ACETAMINOPHEN TAB 500 MG TAB PO STA (14:02)
--- NOTE | 2019-03-13 14:03 | XR ---
EXAMINATION TYPE: XR chest 2V DATE OF EXAM: 03/13/2019 COMPARISON: Chest x-ray June 02, 2017. HISTORY: Cough and chest pain. TECHNIQUE: Frontal and lateral views of the chest are obtained. FINDINGS: Overlying EKG leads are seen. There is chronic parenchymal changes without suspicious foc al air space opacity, pleural effusion, or pneumothorax seen. The cardiac silhouette size is upper l imits of normal. Stimulator device terminates in the lower thoracic spinal canal. IMPRESSION: Chronic parenchymal changes without acute pulmonary process.
[2019-03-13] MEDS: HEPARIN SOD,PORK IN 0.45% NACL 25,000 UNIT in 0.45% NACL 1 250ML.BAG IV SCH (14:26)
[2019-03-13] MEDS ORDERED: NITROGLYCERIN SL TABS 0.4 MG TAB SUBLINGUAL PRN ×2 (15:57→21:33)
[2019-03-13 17:41] VITALS: BMI 33.5
[2019-03-13] MEDS ORDERED: NITROGLYCERIN OINT 1 INCH/GM PACKET TOPICAL SCH (18:00)
[2019-03-13] MEDS: METOPROLOL TARTRATE 50 MG TAB PO SCH (21:40)
[2019-03-13] MEDS: ACETAMINOPHEN TAB 325 MG TAB PO PRN (21:41)
[2019-03-14 04:01] LABS: Cholesterol 124 mg/dL (<200); HDL Cholesterol 41 mg/dL (40-60); LDL Cholesterol,Calculated 66 mg/dL (0-99); Triglycerides 83 mg/dL (<150)
[2019-03-14] MEDS: PANTOPRAZOLE 40 MG TABLET PO SCH (05:45)
[2019-03-14] MEDS: POTASSIUM CHLORIDE ER 10 MEQ TAB.ER.PRT PO SCH (08:48)
[2019-03-14] MEDS: METOPROLOL TARTRATE 50 MG TAB PO SCH ×2 (08:48→20:17)
[2019-03-14] MEDS: FUROSEMIDE 20 MG TAB PO SCH (08:48)
[2019-03-14] MEDS: LOSARTAN 25 MG TAB PO SCH (08:48)
[2019-03-14] MEDS: ASPIRIN 325 MG TAB PO SCH (08:49)
[2019-03-14] MEDS: CLOPIDOGREL 75 MG TAB PO SCH (08:49)
--- NOTE | 2019-03-14 11:13 | P.CRDCN ---
History of Present Illness Consult date: 03/14/19 Requesting physician: Andrade Way Consult reason: non-Q-wave PR, chest pain Chief complaint: Chest pain History of present illness: This is a 53-year-old gentleman who follows regularly in the office with Dr. Montelongo. He has past medical history significant for coronary artery disease and prior LAD stenting in September 2016, subsequent to that he presented to the hospital in May 2017 with symptoms of chest discomfort, he underwent angioplasty and stenting of the LAD and diagonal at that time. Patient does also have history of nicotine dependence, hypertension, hyperlipidemia, and asthma. He presents to the hospital on this occasion with symptoms of midsternal chest discomfort with associated diaphoresis. He states that the symptoms reminded him of what he had on presentation at the time of his stenting. Patient was just visiting with his nephew when the symptoms started, he was not exerting himself at all. At the time of my examination this morning he continues to complain of chest pressure. He is on IV heparin and IV nitroglycerin drips. Chest x-ray on presentation here showed chronic parenchymal change without any acute pulmonary process. EKG on presentation here showed a normal sinus rhythm with mild ST depression noted in the inferior leads. Blood pressure 138/94, heart rate in the 60s, afebrile, 97% on room air. White blood cell count 7.8, hemoglobin 14.3, platelet count 298. Sodium 140, potassium 3.6, BUN 16 and creatinine 0.8. Initial troponin 0.017, subsequent troponin 0.175 and 0.154. Past Medical History Past Medical History: Asthma, Coronary Artery Disease (CAD), Chest Pain / Angina, GERD/Reflux, Hyperlipidemia, Hypertension, Myocardial Infarction (PR), Osteoarthritis (OA), Prostate Disorder, Skin Disorder Additional Past Medical History / Comment(s): palpitations, uticaria vasculitis,ReFlex sympathetic dystrophy syndrome (nerve disorder, has implanted device in lt hip). kidney stones Last Myocardial Infarction Date:: 1986 (was told but did not know) and 06-02-17 History of Any Multi-Drug Resistant Organisms: None Reported Past Surgical History: Heart Catheterization With Stent, Hernia Repair, Tonsillectomy Additional Past Surgical History / Comment(s): cystoscopy, device in left hip for rsd, 5x hernia sx5, tonsillectomy and adenoidectomy, colonoscopy. Past Anesthesia/Blood Transfusion Reactions: Family History of Problems w/ Anesthesia Additional Past Anesthesia/Blood Transfusion Reaction / Comment(s): mom had bp probelms after aa. hx of clausterphobia Date of Last Stent Placement:: 06/02/17 Past Psychological History: No Psychological Hx Reported Smoking Status: Current every day smoker Past Alcohol Use History: None Reported Additional Past Alcohol Use History / Comment(s): started smoking in 1989 smokes 1/2 ppd Past Drug Use History: None Reported - Past Family History Father Family Medical History: Cancer, Congestive Heart Failure (CHF) Additional Family Medical History / Comment(s): leukemia Mother Family Medical History: Dementia, Myocardial Infarction (PR) Additional Family Medical History / Comment(s): pacemaker Brother(s) Family Medical History: Coronary Artery Disease (CAD) Sister(s) Family Medical History: Diabetes Mellitus Daughter(s) Family Medical History: No Reported History, Diabetes Mellitus Son(s) Family Medical History: No Reported History Medications and Allergies Home Medications Medication Instructions Recorded Confirmed Type Clopidogrel [Plavix] 75 mg PO DAILY #30 tab 10/03/16 03/13/19 Rx Nitroglycerin Sl Tabs [Nitrostat] 0.4 mg SUBLINGUAL Q5M PRN #25 tab 10/03/16 03/13/19 Rx Omeprazole 40 mg PO DAILY 06/02/17 03/13/19 History Furosemide [Lasix] 20 mg PO DAILY 05/23/18 03/13/19 History Losartan [Cozaar] 25 mg PO DAILY 05/23/18 03/13/19 History Metoprolol Tartrate [Lopressor] 50 mg PO BID 05/23/18 03/13/19 History Potassium Chloride ER [K-Dur 10] 10 meq PO DAILY 05/23/18 03/13/19 History Rosuvastatin Calcium [Crestor] 40 mg PO HS 05/23/18 03/13/19 History Allergies Allergy/AdvReac Type Severity Reaction Status Date / Time latex Allergy Rash/Hives Verified 03/13/19 12:18 Physical Exam Vitals: Vital Signs Temp Pulse Pulse Resp BP BP Pulse Ox 03/14/19 08:00 98.4 F 63 18 139/94 97 03/14/19 04:00 98.4 F 62 16 134/83 97 03/13/19 23:47 77 16 109/67 98 03/13/19 21:43 70 120/72 03/13/19 19:45 97.3 F L 72 16 156/82 96 03/13/19 17:55 98.1 F 71 18 144/114 99 03/13/19 17:54 98.1 F 71 18 144/114 99 03/13/19 17:35 98.1 F 70 18 145/88 99 03/13/19 16:30 71 17 144/114 99 03/13/19 16:00 72 10 L 142/94 98 03/13/19 15:59 74 17 145/93 99 03/13/19 15:30 74 17 145/93 99 03/13/19 15:00 75 16 169/106 99 03/13/19 14:30 85 14 151/92 99 03/13/19 14:00 85 16 153/84 100 03/13/19 13:50 85 17 153/84 98 03/13/19 13:30 85 17 137/89 100 03/13/19 13:03 137/89 03/13/19 13:00 73 16 181/86 99 03/13/19 12:30 130 H 17 154/96 03/13/19 12:00 105 H 15 98 03/13/19 11:59 105 H 12 97 03/13/19 11:52 97.7 F 118 H 17 146/92 99 Intake and Output 03/13/19 03/14/19 03/14/19 22:59 06:59 14:59 Intake Total 1632.166 Output Total 525 Balance 1632.166 -525 Intake: Amount of Fluid Infused ( 1200 ml) Intake, IV Titration 72.166 Amount Heparin Sod,Pork in 0.45% 72.166 NaCl 25,000 unit In 0.45 % NaCl 1 250ml.bag @ 8.7 UNITS/KG/HR 10.023 mls/hr IV .Q24H [facility] Rx#: [id number] Oral 360 Output: Urine 525 Other: Voiding Method Toilet Toilet Urinal Urinal Weight 111.1 kg PHYSICAL EXAMINATION: GENERAL: 53-year-old gentleman in no acute distress at the time of my examination HEENT: Head is atraumatic, normocephalic. Pupils equal, round. Sclera anicteric. Conjunctiva are clear. Mucous membranes of the mouth are moist. Neck is supple. There is no elevated jugular venous pressure. No carotid bruit is heard. HEART EXAMINATION: Heart S1, S2 normal. No murmur or gallop heard. CHEST EXAMINATION: Lungs are clear to auscultation and precussion. No chest wall tenderness is noted on palpation or with deep breathing. ABDOMEN: Soft, nontender. Bowel sounds are heard. No organomegaly noted. EXTREMITIES: 2+ peripheral pulses with no evidence of peripheral edema and no calf tenderness noted. NEUROLOGIC patient is awake, alert and oriented 3 . . Results 03/13/19 12:22 03/13/19 12:22 Cardiac Enzymes 03/13/19 03/13/19 03/13/19 Range/Units 12:22 12:22 19:16 AST 37 (17-59) U/L Troponin I 0.017 0.175 H* (0.000-0.034) ng/mL 03/14/19 Range/Units 00:06 AST (17-59) U/L Troponin I 0.154 H* (0.000-0.034) ng/mL Coagulation 03/13/19 03/13/19 03/14/19 Range/Units 12:22 19:16 02:40 PT 9.7 (9.0-12.0) sec APTT 23.9 36.3 H 47.8 H (22.0-30.0) sec Lipids 03/14/19 Range/Units 02:41 Triglycerides 83 (<150) mg/dL Cholesterol 124 (<200) mg/dL HDL Cholesterol 41 (40-60) mg/dL CBC 03/13/19 Range/Units 12:22 WBC 7.8 (3.8-10.6) k/uL RBC 4.87 (4.30-5.90) m/uL Hgb 14.3 (13.0-17.5) gm/dL Hct 45.0 (39.0-53.0) % Plt Count 298 (150-450) k/uL Comprehensive Metabolic Panel 03/13/19 Range/Units 12:22 Sodium 140 (137-145) mmol/L Potassium 3.6 (3.5-5.1) mmol/L Chloride 103 (98-107) mmol/L Carbon Dioxide 26 (22-30) mmol/L BUN 16 (9-20) mg/dL Creatinine 0.89 (0.66-1.25) mg/dL Glucose 95 (74-99) mg/dL Calcium 10.0 (8.4-10.2) mg/dL AST 37 (17-59) U/L ALT 49 (21-72) U/L Alkaline Phosphatase 82 (38-126) U/L Total Protein 8.1 (6.3-8.2) g/dL Albumin 4.6 (3.5-5.0) g/dL Current Medications Generic Name Dose Route Start Last Admin Trade Name Freq PRN Reason Stop Dose Admin Acetaminophen 650 mg 03/13/19 21:18 03/13/19 21:41 Tylenol Tab PO 650 mg Q4HR PRN Administration Fever and/ or Pain Aspirin 325 mg 03/14/19 09:00 03/14/19 08:49 Aspirin PO 325 mg DAILY [facility] Administration Atorvastatin Calcium 80 mg 03/14/19 21:00 Lipitor PO HS [facility] Clopidogrel Bisulfate 75 mg 03/14/19 09:00 03/14/19 08:49 Plavix PO 75 mg DAILY [facility] Administration Furosemide 20 mg 03/14/19 09:00 03/14/19 08:48 Lasix PO 20 mg DAILY [facility] Administration Nitroglycerin/Dextrose 50 mg/ 250 mls @ 3 mls/hr 03/13/19 12:12 03/13/19 14:22 IV Solution IV 03/14/19 12:11 5 mcg/min .Q24H ONE 1.5 mls/hr Titration Protocol 10 MCG/MIN Heparin Sodium/Sodium Chloride 250 mls @ 10.023 mls/hr 03/13/19 13:45 03/13/19 21:38 25,000 unit/ Sodium Chloride IV 11.7 units/kg/hr .Q24H [facility] 13.48 mls/hr Titration Protocol 8.7 UNITS/KG/HR Losartan Potassium 25 mg 03/14/19 09:00 03/14/19 08:48 Cozaar PO 25 mg DAILY [facility] Administration Metoprolol Tartrate 50 mg 03/13/19 21:30 03/14/19 08:48 Lopressor PO 50 mg BID [facility] Administration Nicotine 1 patch 03/14/19 10:30 Habitrol 14mg/24hr Patch TRANSDERM DAILY [facility] Nitroglycerin 0.4 mg 03/13/19 21:33 Nitrostat SUBLINGUAL Q5M PRN Chest Pain Pantoprazole Sodium 40 mg 03/14/19 07:30 03/14/19 05:45 Protonix PO Not Given DAILY@0730 [facility] Potassium Chloride 10 meq 03/14/19 09:00 03/14/19 08:48 K-Dur 10 PO 10 meq DAILY [facility] Administration Intake and Output 03/13/19 03/14/19 03/14/19 22:59 06:59 14:59 Intake Total 1632.166 Output Total 525 Balance 1632.166 -525 Intake: Amount of Fluid Infused ( 1200 ml) Intake, IV Titration 72.166 Amount Heparin Sod,Pork in 0.45% 72.166 NaCl 25,000 unit In 0.45 % NaCl 1 250ml.bag @ 8.7 UNITS/KG/HR 10.023 mls/hr IV .Q24H [facility] Rx#: [id number] Oral 360 Output: Urine 525 Other: Voiding Method Toilet Toilet Urinal Urinal Weight 111.1 kg 03/13/19 12:22 03/13/19 12:22 EKG Interpretations (text) EKG shows a normal sinus rhythm with inferior ST depression noted. Assessment and Plan Plan: Assessment and plan #1 non-ST elevation PR #2 history of prior stenting, LAD and diagonal #3 hypertension #4 hyperlipidemia #5 GERD #6 nicotine dependence Plan We will obtain a stat echocardiogram with Doppler study, continue IV heparin and nitroglycerin drip. Patient has been advised to undergo cardiac catheterization, the risks and the benefits of been explained to the patient in detail and he is willing to proceed. Further recommendations will be based on these findings and the patient's clinical course. DNP note has been reviewed, I agree with a documented findings and plan of care. Patient was seen and examined.
--- NOTE | 2019-03-14 11:18 | P.HPIM ---
History of Present Illness H&P Date: 03/14/19 Chief Complaint: chest pain This is a 53-year-old patient of Dr. Way and Dr. Maguire with a previous medical history significant for CAD post-NJ back in 1987, heart c atheterization September 2016 with critical lesion in the mid LAD and noncritical lesion in the left main and circumflex with stenting in the LAD, acute ST elevated NJ in May 2017 status post heart catheterization sent to the first diagonal branch and LAD with previous stent patent. He also has history of hypertension and hypertensive cardio vascular disease, hyperlipidemia, osteoarthritis both shoulders and both knees along with complex regional pain syndrome involving the left foot, active tobacco use and dependence. Patient had sudden onset of left anterior chest wall pain that radiated to his left arm and up into his neck. He states the pain is similar to when he had his NJ in the past but the neck pain is worse than before. He was also diaphoretic and short of breath. No nausea. He took 4 nitroglycerin and 5 baby aspirins. Pain was not relieved. Patient came into [facility] emergency center for evaluation. Patient was afebrile, initial heart rate 118, blood pressure 146/92, pulse ox 99% on room air. EKG was in normal sinus rhythm with no acute ST elevation, there is ST depression inferior leads, V5 V6. CBC, basic metabolic panel were unremarkable. Chest x-ray showed no acute cardiopulmonary abnormalities. Patient was started on heparin and nitroglycerin drips, admitted to the cardiac stepdown unit and cardiology consult requested. Troponins 0.017, 0.175, 0.154. Triglycerides 83, cholesterol 124, LDL 66, HDL 41. Review of Systems Constitutional: Reports fatigue, Denies anorexia, Denies chills, Denies fever, Denies malaise, Denies weight loss Eyes: denies blurred vision, denies pain Ears, nose, mouth and throat: Denies headache, Denies sore throat Cardiovascular: Reports chest pain, Reports decreased exercise tolerance, Reports dyspnea on exertion, Denies edema, Denies leg edema, Denies lightheadedness, Denies palpitations, Denies shortness of breath, Denies syncope Respiratory: Denies cough, Denies cough with sputum, Denies dyspnea, Denies hemoptysis, Denies home oxygen, Denies wheezing Gastrointestinal: Denies abdominal pain, Denies diarrhea, Denies nausea, Denies vomiting Genitourinary: Denies dysuria, Denies urinary retention Musculoskeletal: Denies frequent falls, Denies gait dysfunction, Denies myalgias Integumentary: Denies pruritus, Denies rash, Denies wounds Neurological: Denies change in mentation, Denies change in speech, Denies numbness, Denies seizures, Denies weakness Psychiatric: Denies anxiety, Denies depression Endocrine: Denies fatigue, Denies weight change Past Medical History Past Medical History: Asthma, Coronary Artery Disease (CAD), Chest Pain / Angina, GERD/Reflux, Hyperlipidemia, Hypertension, Myocardial Infarction (NJ), Osteoarthritis (OA), Prostate Disorder, Skin Disorder Additional Past Medical History / Comment(s): palpitations, uticaria vasculitis,ReFlex sympathetic dystrophy syndrome (nerve disorder, has implanted device in lt hip). kidney stones Last Myocardial Infarction Date:: 1986 (was told but did not know) and 06-02-17 History of Any Multi-Drug Resistant Organisms: None Reported Past Surgical History: Heart Catheterization With Stent, Hernia Repair, Tonsillectomy Additional Past Surgical History / Comment(s): cystoscopy, device in left hip for rsd, 5x hernia sx5, tonsillectomy and adenoidectomy, colonoscopy. Past Anesthesia/Blood Transfusion Reactions: Family History of Problems w/ Anesthesia Additional Past Anesthesia/Blood Transfusion Reaction / Comment(s): mom had bp probelms after aa. hx of clausterphobia Date of Last Stent Placement:: 06/02/17 Past Psychological History: No Psychological Hx Reported Smoking Status: Current every day smoker Past Alcohol Use History: None Reported Additional Past Alcohol Use History / Comment(s): Patient started smoking when he was 14 years old and smokes a pack per day. He is currently on disability. He lives at home with his . Past Drug Use History: None Reported - Past Family History Father Family Medical History: Cancer, Congestive Heart Failure (CHF) Additional Family Medical History / Comment(s): Father at age 91 from congestive heart failure. He also had history of leukemia. Mother Family Medical History: Dementia, Myocardial Infarction (NJ) Additional Family Medical History / Comment(s): Mother at age 90 from dementia. She also has history of pacemaker. Brother(s) Family Medical History: Coronary Artery Disease (CAD) Additional Family Medical History / Comment(s): Patient has 2 brothers one of the brothers with CAD. Sister(s) Family Medical History: Diabetes Mellitus Additional Family Medical History / Comment(s): Patient had 2 sisters one of th em at age of 56 from diabetes complications. Daughter(s) Family Medical History: No Reported History, Diabetes Mellitus Additional Family Medical History / Comment(s): Patient has 3 daughters no major medical problems. Son(s) Family Medical History: No Reported History Additional Family Medical History / Comment(s): Patient has one son no major medical problems. Medications and Allergies Home Medications Medication Instructions Recorded Confirmed Type Clopidogrel [Plavix] 75 mg PO DAILY #30 tab 10/03/16 03/13/19 Rx Nitroglycerin Sl Tabs [Nitrostat] 0.4 mg SUBLINGUAL Q5M PRN #25 tab 10/03/16 03/13/19 Rx Omeprazole 40 mg PO DAILY 06/02/17 03/13/19 History Furosemide [Lasix] 20 mg PO DAILY 05/23/18 03/13/19 History Losartan [Cozaar] 25 mg PO DAILY 05/23/18 03/13/19 History Metoprolol Tartrate [Lopressor] 50 mg PO BID 05/23/18 03/13/19 History Potassium Chloride ER [K-Dur 10] 10 meq PO DAILY 05/23/18 03/13/19 History Rosuvastatin Calcium [Crestor] 40 mg PO HS 05/23/18 03/13/19 History Aspirin EC [Ecotrin Low Dose] 81 mg PO DAILY #30 tablet.dr 03/15/19 Rx Nicotine 14Mg/24Hr Patch [Habitrol] 1 patch TRANSDERM DAILY #7 patch 03/15/19 Rx amLODIPine [Norvasc] 5 mg PO DAILY #30 tab 03/15/19 Rx Allergies Allergy/AdvReac Type Severity Reaction Status Date / Time latex Allergy Rash/Hives Verified 03/13/19 12:18 Physical Exam Vitals: Vital Signs Temp Pulse Pulse Resp BP BP Pulse Ox 03/14/19 08:00 98.4 F 63 18 139/94 97 03/14/19 04:00 98.4 F 62 16 134/83 97 03/13/19 23:47 77 16 109/67 98 03/13/19 21:43 70 120/72 03/13/19 19:45 97.3 F L 72 16 156/82 96 03/13/19 17:55 98.1 F 71 18 144/114 99 03/13/19 17:54 98.1 F 71 18 144/114 99 03/13/19 17:35 98.1 F 70 18 145/88 99 03/13/19 16:30 71 17 144/114 99 03/13/19 16:00 72 10 L 142/94 98 03/13/19 15:59 74 17 145/93 99 03/13/19 15:30 74 17 145/93 99 03/13/19 15:00 75 16 169/106 99 03/13/19 14:30 85 14 151/92 99 03/13/19 14:00 85 16 153/84 100 03/13/19 13:50 85 17 153/84 98 03/13/19 13:30 85 17 137/89 100 03/13/19 13:03 137/89 03/13/19 13:00 73 16 181/86 99 03/13/19 12:30 130 H 17 154/96 03/13/19 12:00 105 H 15 98 03/13/19 11:59 105 H 12 97 03/13/19 11:52 97.7 F 118 H 17 146/92 99 Intake and Output 03/13/19 03/14/19 03/14/19 22:59 06:59 14:59 Intake Total 1632.166 Output Total 525 Balance 1632.166 -525 Intake: Amount of Fluid Infused ( 1200 ml) Intake, IV Titration 72.166 Amount Heparin Sod,Pork in 0.45% 72.166 NaCl 25,000 unit In 0.45 % NaCl 1 250ml.bag @ 8.7 UNITS/KG/HR 10.023 mls/hr IV .Q24H [facility] Rx#: [id number] Oral 360 Output: Urine 525 Other: Voiding Method Toilet Toilet Urinal Urinal Weight 111.1 kg Gen: This is an overweight 53-year-old male. He is resting in recliner and appears to be comfortable. HEENT: Head is atraumatic, normocephalic. Pupils equal, round. Sclerae is anicteric. NECK: Supple. No JVD. No lymphadenopathy. No thyromegaly. LUNGS: Clear to auscultation. No wheezes or rhonchi. No intercostal retractions. HEART: Regular rate and rhythm. No murmur. ABDOMEN: Soft. Bowel sounds are present. No masses. No tenderness. EXTREMITIES: No pedal edema. No calf tenderness. NEUROLOGICAL: Patient is awake, alert and oriented x3. Cranial nerves 2 through 12 are grossly intact. Results CBC & Chem 7: 03/13/19 12:22 03/15/19 06:34 Labs: Abnormal Lab Results - Last 24 Hours (Table) 03/13/19 03/13/19 03/14/19 Range/Units 19:16 19:16 00:06 APTT 36.3 H (22.0-30.0) sec Troponin I 0.175 H* 0.154 H* (0.000-0.034) ng/mL 03/14/19 Range/Units 02:40 APTT 47.8 H (22.0-30.0) sec Troponin I (0.000-0.034) ng/mL Thrombosis Risk Factor Assmnt - DVT/VTE Prophylaxis DVT/VTE Prophylaxis: Pharmacologic Prophylaxis ordered Assessment and Plan Plan: 1. Chest pain most likely non-ST elevated myocardial infarction. Patient is currently on nitroglycerin drip and heparin drip to be continued. Cardiology consult. Continue aspirin 325 mg orally once every day, Lipitor 80 mg orally once every day, metoprolol 50 mg orally twice every day. 2. History of CAD post NJ in the past. Continue as in #1. 3. Hypertension and hypertensive cardiovascular disease. Continue metoprolol 50 mg orally twice every day. 4. Hyperlipidemia. Continue patient on Lipitor 80 mg orally once every day. 5. Osteoarthritis of both shoulders and both knees. Continue current pain management. 6. Complex regional pain syndrome. Stable at this point in time. 7. Chronic tobacco use and dependence. Patient was counseled on smoking cessation and increased risk of CAD, CVA, and malignancy, we will start the patient on nicotine patch 14 mg daily. 8. DVT prophylaxis. Currently on heparin drip. 9. GI prophylaxis. Continue patient on PPI. 10. Full code. Patient will be admitted for a minimum of 2 nights stay. Impression and plan of care have been directed as dictated by the signing physician. Lakeisha Johnston nurse practitioner acting as scribe for signing physician.
[2019-03-14] MEDS: NICOTINE 14MG/24HR PATCH TRANSDERM SCH (11:42)
[2019-03-14] MEDS ORDERED: ALPRAZolam 0.5 MG TAB PO PRN (14:09)
[2019-03-14] MEDS ORDERED: ATORVASTATIN 80 MG TAB PO STA (14:09)
[2019-03-14] MEDS ORDERED: ALPRAZolam 0.25 MG TAB PO PRN (14:09)
[2019-03-14] MEDS ORDERED: ASPIRIN 325 MG TAB PO STA (14:09)
[2019-03-14] MEDS ORDERED: NITROGLYCERIN SL TABS 0.4 MG TAB SUBLINGUAL PRN (14:09)
[2019-03-14] MEDS ORDERED: SODIUM CHLORIDE 0.9% 1,000 ML in EMPTY BAG 1 BAG IV ONE (14:09)
[2019-03-14] MEDS: HEPARIN SOD,PORK IN 0.45% NACL 25,000 UNIT in 0.45% NACL 1 250ML.BAG IV SCH (15:43)
[2019-03-14] MEDS ORDERED: LIDOCAINE 1% INJ 10MG/ML (20 ML MDV) ONE (17:19)
[2019-03-14] MEDS ORDERED: VERAPAMIL 2.5 MG/ML 2 ML AMP ONE (17:26)
[2019-03-14] MEDS ORDERED: SODIUM CHLORIDE 0.9% 1,000 ML IV ONE (17:32)
[2019-03-14] MEDS ORDERED: fentaNYL (PF) 50 MCG/ML 2 ML AMP ONE (17:34)
[2019-03-14] MEDS ORDERED: LIDOCAINE 1% INJ 10MG/ML (20 ML MDV) SQ ONE (17:38)
[2019-03-14] MEDS ORDERED: fentaNYL (PF) 50 MCG/ML 2 ML AMP IVP ONE (17:38)
[2019-03-14] MEDS ORDERED: MIDAZOLAM PF (FBP) 2 MG/2 ML VIAL IVP ONE (17:38)
[2019-03-14] MEDS ORDERED: IOPAMIDOL-370 50ML BTL INJ ONE (17:52)
[2019-03-14] MEDS ORDERED: RX INFO: IV CONTRAST WAS GIVEN 1 EACH MISC MISCELLANE PRN (18:03)
[2019-03-14] MEDS ORDERED: IOPAMIDOL-370 125ML BTL INJ ONE (18:07)
[2019-03-14] MEDS ORDERED: NITROGLYCERIN-D5W PMX 50 MG in DEXTROSE/WATER 1 250ML.BAG IV ONE (18:08)
--- NOTE | 2019-03-14 18:12 | P.CARDCATH ---
Date of Procedure: 03/14/19 Preoperative Diagnosis: Non-STEMI Postoperative Diagnosis: Total occlusion of the stent in the first diagonal Description of Procedure: HISTORY: This is a 53-year-old gentleman with history of ischemic heart disease with previous stent placement of the mid LAD, followed by stent placement first diagonal done in 2017. Patient came to the hospital this time with complaints of chest pain and abnormal troponin values suggestive of possible non-STEMI. Patient is advised to have a cardiac catheterization for definitive diagnosis. CONSENT:I have discussed the risks, benefits and alternative therapies for the above-mentioned procedure and for both sedation/analgesia as well as necessary blood product administration, if indicated, as they pertain to this patient. The patient has indicated understanding and acceptance of the risks and procedures discussed. PROCEDURE: Patient was brought to the lab in a fasting state. Patient was given some IV sedation. The right groin is infiltrated with lidocaine and right femoral artery was entered using Seldinger technique. A 6-Romansh catheter was left in place and selective coronary arteriography and left ventriculography was performed. Patient tolerated the procedure well. Femoral angiogram was p erformed and Angio-Seal was applied for hemostasis. No immediate complications were noted and patient was transferred to [facility] in a stable condition Conscious Sedation: Versed 1mg Fentanyl 25 g Duration 23minutes HEMODYNAMICS: The aortic pressure is about 160-170/80. The end-diastolic pressure of the left ventricle was 8-12. There was no gradient across the aortic valve SELECTIVE CORONARY ARTERIOGRAPHY: LEFT MAIN: Normal length with about 40% distal stenosis. No significant change compared to the previous study THE LEFT ANTERIOR DESCENDING CORONARY ARTERY:. This is a moderate caliber vessel with patent stent in the proximal to mid area. There is total occlusion of the stent into the proximal diagonal THE LEFT CIRCUMFLEX AND IS CORONARY ARTERY: This is a fairly caliber vessel with about 40% stenosis proximally without any change compared to the previous study THE RIGHT CORONARY ARTERY:. This a dominant vessel giving rise good-sized PDA and PLV. This seemed to collaterals from the right to the septal branch LEFT VENTRICULOGRAPHY:. This revealed normal-sized cardiac silhouette with preserved LV function FINAL IMPRESSION:. Total occlusion of the stent in the proximal diagonal PLAN: The films were reviewed with Dr. Rust who did the previous procedure. Because of the technical issues and complexity, maximal medical therapy suggested. PROGNOSIS: Guarded
[2019-03-14] MEDS: amLODIPine 5 MG TAB PO SCH (18:38)
[2019-03-14] MEDS: SODIUM CHLORIDE 0.9% 1,000 ML IV SCH (18:38)
[2019-03-14] MEDS: ACETAMINOPHEN TAB 325 MG TAB PO PRN (22:22)
[2019-03-15 07:16] LABS: African American GFR (CKD) >90 (>60 ml/min/1.73 sqM); Anion Gap 7 mmol/L; Blood Urea Nitrogen 18 mg/dL (9-20); Calcium 9.5 mg/dL (8.4-10.2); Carbon Dioxide 26 mmol/L (22-30); Chloride 106 mmol/L (98-107); Glucose 100 mg/dL (74-99); Potassium 4.8 mmol/L (3.5-5.1); Sodium 139 mmol/L (137-145)
[2019-03-15] MEDS: LOSARTAN 25 MG TAB PO SCH (09:42)
[2019-03-15] MEDS: ASPIRIN 325 MG TAB PO SCH (09:42)
[2019-03-15] MEDS: amLODIPine 5 MG TAB PO SCH (09:42)
[2019-03-15] MEDS: CLOPIDOGREL 75 MG TAB PO SCH (09:43)
[2019-03-15] MEDS: NICOTINE 14MG/24HR PATCH TRANSDERM SCH (09:43)
[2019-03-15] MEDS: FUROSEMIDE 20 MG TAB PO SCH (09:43)
[2019-03-15] MEDS: PANTOPRAZOLE 40 MG TABLET PO SCH (09:43)
[2019-03-15] MEDS: METOPROLOL TARTRATE 50 MG TAB PO SCH (09:43)
[2019-03-15] MEDS: POTASSIUM CHLORIDE ER 10 MEQ TAB.ER.PRT PO SCH (09:43)
--- NOTE | 2019-03-15 09:48 | PN ---
PROGRESS NOTE Mr. Perez is in a sinus rhythm, comfortable. No further chest pain. Cardiac cath yesterday revealed that his diagonal vessel which was stented in the past has been occluded. Decision was made to pursue medical therapy given the small amount of myocardium being supplied by it. Rest of vasculature is okay. He is doing well. His right groin is clean and dry with a good pulse. Vitals are stable. No JVD. S1, S2 heard normally. Lungs are clear. Abdomen and lower extremity exam unchanged. Plan is to increase activity and hopefully discharge him later on today and he will see Dr. Montelongo in the office. MMODL / IJN: [id number] /
[2019-03-15 10:04] VITALS: BP 139/92; PULSE 66; RESP 18; TEMP 98.4
[2019-03-15] MEDS: SODIUM CHLORIDE 0.9% 1,000 ML IV SCH (11:37)
--- NOTE | 2019-03-15 11:58 | ECHOF ---
Referral Reason:assess lvf MEASUREMENTS -------- HEIGHT: 182.9 cm WEIGHT: 110.7 kg BP: RVIDd: 3.7 cm (< 3.3) IVSd: 1.3 cm (0.6 - 1.1) LVIDd: 4.3 cm (3.9 - 5.3) LVPWd: 1.3 cm (0.6 - 1.1) IVSs: 1.7 cm LVIDs: 3.6 cm LVPWs: 1.9 cm LA Diam: 3.8 cm (2.7 - 3.8) LAESV Index (A-L): 25.66 ml/m Ao Diam: 3.6 cm (2.0 - 3.7) AV Cusp: 2.3 cm (1.5 - 2.6) LA Diam: 3.6 cm (2.7 - 3.8) MV EXCURSION: 22.126 mm (> 18.000) MV EF SLOPE: 140 mm/s (70 - 150) EPSS: 0.6 cm MV E Darvin: 0.71 m/s MV DecT: 154 ms MV A Darvin: 0.51 m/s MV E/A Ratio: 1.39 RAP: 5.00 mmHg RVSP: 24.79 mmHg TAPSE: 22.67 mm FINDINGS -------- Sinus rhythm. This was a technically adequate study. The left ventricular size is normal. There is mild concentric left ventricular hypertrophy. Overa ll left ventricular systolic function is normal with, an EF between 55 - 60 %. The diastolic fillin g pattern is normal for the age of the patient 8.52. The right ventricle is normal in size. The left atrial size is normal. Normal LA size by volume 22+/-6 ml/m2. The right atrial size is normal. The aortic valve is trileaflet, and appears structurally normal. No aortic stenosis or regurgitation. Mild mitral annular calcification present. Mild mitral regurgitation is present. Mild tricuspid regurgitation present. Right ventricular systolic pressure is normal at < 35 mmHg. There is no evidence of pulmonary hypertension. The pulmonic valve was not well visualized. The aortic root size is normal. There is no pericardial effusion. CONCLUSIONS -------- 1. Sinus rhythm. 2. This was a technically adequate study. 3. The left ventricular size is normal. 4. There is mild concentric left ventricular hypertrophy. 5. Overall left ventricular systolic function is normal with, an EF between 55 - 60 %. 6. The diastolic filling pattern is normal for the age of the patient 8.52 7. The right ventricle is normal in size. 8. The left atrial size is normal. 9. Normal LA size by volume 22+/-6 ml/m2. 10. The right atrial size is normal. 11. The aortic valve is trileaflet, and appears structurally normal. No aortic stenosis or regurgitat ion. 12. Mild mitral annular calcification present. 13. Mild mitral regurgitation is present. 14. Mild tricuspid regurgitation present. 15. Right ventricular systolic pressure is normal at < 35 mmHg. 16. There is no evidence of pulmonary hypertension. 17. The pulmonic valve was not well visualized. 18. The aortic root size is normal. 19. There is no pericardial effusion. TOOL CRIB LEAD: Chastity Spence RDCS
--- NOTE | 2019-03-15 14:56 | P.DS ---
Providers Date of admission: 03/13/19 15:57 Expected date of discharge: 03/15/19 Attending physician: Andrade Way Consults: 03/13/19 15:57 Consult Physician Urgent Consulting Provider: [facility] Consult Reason/Comments: Unstable angina Do you want consulting provider notified?: Yes Primary care physician: Andrade Way [facility] Course: This is a 53-year-old patient of Dr. Way and Dr. Maguire with a previous medical history significant for CAD post-GA back in 1987, heart catheterization September 2016 with critical lesion in the mid LAD and noncritical lesion in the left main and circumflex with stenting in the LAD, acute ST elevated GA in May 2017 status post heart catheterization sent to the first diagonal branch and LAD with previous stent patent. He also has history of hypertension and hypertensive cardio vascular disease, hyperlipidemia, osteoarthritis both shoulders and both knees along with complex regional pain syndrome involving the left foot, active tobacco use and dependence. Patient had sudden onset of left anterior chest wall pain that radiated to his left arm and up into his neck. He states the pain is similar to when he had his GA in the past but the neck pain is worse than before. He was also diaphoretic and short of breath. No nausea. He took 4 nitroglycerin and 5 baby aspirins. Pain was not relieved. Patient came into [facility] emergency center for evaluation. Patient was afebrile, initial heart rate 118, blood pressure 146/92, pulse ox 99% on room air. EKG was in normal sinus rhythm with no acute ST elevation, there is ST depression inferior leads, V5 V6. CBC, basic metabolic panel were unremarkable. Chest x-ray showed no acute cardiopulmonary abnormalities. Patient was started on heparin and nitroglycerin drips, admitted to the cardiac stepdown unit and cardiology consult requested. Troponins 0.017, 0.175, 0.154. Triglycerides 83, cholesterol 124, LDL 66, HDL 41. 03/15: Yesterday, patient underwent heart catheterization finding total occlusion of the stent in the first diagonal. 40% stenosis in the left circumflex. Films were reviewed with Dr. Maguire and due to technical issues and complexity, maximize ankle therapy was suggested. This morning, patient denies any chest pain or shortness of breath. Right groin is clean and dry. He has been cleared for discharge by cardiology. Patient will be discharged home today in stable condition. Discharge diagnoses: 1. Chest pain secondary to non-ST elevated myocardial infarction. 2. History of CAD post GA in the past. 3. Hypertension and hypertensive cardiovascular disease. 4. Hyperlipidemia. 5. Osteoarthritis of both shoulders and both knees. 6. Complex regional pain syndrome. Stable at this point in time. 7. Chronic tobacco use and dependence. Discharge plan: Home Impression and plan of care have been directed as dictated by the signing physician. Lakeisha Johnston nurse practitioner acting as scribe for signing physician. Patient Condition at Discharge: Good Plan - Discharge Summary New Discharge Prescriptions: New Nicotine 14Mg/24Hr Patch [Habitrol] 1 patch TRANSDERM DAILY #7 patch amLODIPine [Norvasc] 5 mg PO DAILY #30 tab Aspirin EC [Ecotrin Low Dose] 81 mg PO DAILY #30 tablet. Continue Clopidogrel [Plavix] 75 mg PO DAILY #30 tab Nitroglycerin Sl Tabs [Nitrostat] 0.4 mg SUBLINGUAL Q5M PRN #25 tab PRN Reason: Chest Pain Omeprazole 40 mg PO DAILY Potassium Chloride ER [K-Dur 10] 10 meq PO DAILY Rosuvastatin Calcium [Crestor] 40 mg PO HS Metoprolol Tartrate [Lopressor] 50 mg PO BID Losartan [Cozaar] 25 mg PO DAILY Furosemide [Lasix] 20 mg PO DAILY Discharge Medication List Clopidogrel [Plavix] 75 mg PO DAILY #30 tab 10/03/16 [Rx] Nitroglycerin Sl Tabs [Nitrostat] 0.4 mg SUBLINGUAL Q5M PRN #25 tab 10/03/16 [Rx] Omeprazole 40 mg PO DAILY 06/02/17 [History] Furosemide [Lasix] 20 mg PO DAILY 05/23/18 [History] Losartan [Cozaar] 25 mg PO DAILY 05/23/18 [History] Metoprolol Tartrate [Lopressor] 50 mg PO BID 05/23/18 [History] Potassium Chloride ER [K-Dur 10] 10 meq PO DAILY 05/23/18 [History] Rosuvastatin Calcium [Crestor] 40 mg PO HS 05/23/18 [History] Aspirin EC [Ecotrin Low Dose] 81 mg PO DAILY #30 tablet. 03/15/19 [Rx] Nicotine 14Mg/24Hr Patch [Habitrol] 1 patch TRANSDERM DAILY #7 patch 03/15/19 [Rx] amLODIPine [Norvasc] 5 mg PO DAILY #30 tab 03/15/19 [Rx] Follow up Appointment(s)/Referral(s): Andrade Way MD [Primary Care Provider] - 1 Week (Spoke to law office receptionist. Office will call with appointment time.) Frederic Montelonog MD [STAFF PHYSICIAN] - 1 Week (Spoke to law office receptionist. Office to call with appointment time) Patient Instructions/Handouts: *[facility] - After Heart Catheterization - Treasury Analyst Instructions, Left Heart Catheterization (DC) Discharge Disposition: HOME SELF-CARE
[2019-03-15] MEDS ORDERED: ATORVASTATIN 80 MG TAB PO SCH (21:00)
--- NOTE | 2019-03-22 16:00 | CDI ---
Documentation Clarification Form Date: 03/22/2019 3:57:00 PM From: Simran Chacko Phone: If you have a question regarding this query, please contact Beth Bullard at [phone] between 8am and 5pm. Admit Date: 03/13/2019 3:57:00 PM Patient Name: Kwaku Perez Visit Number: [id number] Discharge Date: 03/15/2019 12:04:00 PM ATTENTION: The Clinical Documentation Specialists (CDI) and [facility] Coding Staff appreciate your assistance in clarifying documentation. Please respond to the clarification below the line at the bottom and electronically sign. The CDI & [facility] Coding staff will review the response and follow-up if needed. Please note: Queries are made part of the Legal Health Record. If you have any questions, please contact the author of this message via ITS. Dr. Andrade Way Non-ST elevated myocardial infarction is documented in the H&P, discharge summary and consult note: Patient History/Risk Factors: Previous SD, CAD, hypertensive cardiovascular disease, hyperlipidemia, cigarette smoker. Clinical Indicators: Chest pain, abnormal troponin values Troponin: 0.017, 0.175, 0.154 EKG Results: Normal sinus rhythm with ST depression in the inferior leads Heart Cath: Total occlusion of the stent in the proximal diagonal. Treatment: Per Dr. Montelongo in the heart cath report, because of technical issues and complexity, maximal medical therapy suggested. Consult: Non-ST elevation SD In order to capture the severity of condition and necessary documentation specificity, please clarify if the non-ST elevation SD was due to the total occlusion of the stent in the proximal diagonal: Yes No Unable to determine Other Condition, please specify SD due to occulsion of stent MTDD
== END 2019-03-15 12:04 | disposition home or self-care (01) | DRG 281 ==
LOC: EC 11:50 → 3SCARD 15:57
PROVIDERS: ADMIT Internal Medicine Geriatric Medicine; ATTEND Internal Medicine Geriatric Medicine
PROC: B2111ZZ Fluoroscopy of Multiple Coronary Arteries using Low Osmolar Contrast (ICD-10-PCS; 2019-03-14)
PROC: B2151ZZ Fluoroscopy of Left Heart using Low Osmolar Contrast (ICD-10-PCS; 2019-03-14)
PROC: 4A023N7 Measurement of Cardiac Sampling and Pressure, Left Heart, Percutaneous Approach (ICD-10-PCS; principal; 2019-03-14 17:20)
DX: T82.855A Stenosis of coronary artery stent, initial encounter (principal); I21.4 Non-ST elevation (NSTEMI) myocardial infarction; G90.50 Complex regional pain syndrome I, unspecified; I25.110 Atherosclerotic heart disease of native coronary artery with unstable angina pectoris; I11.9 Hypertensive heart disease without heart failure; E78.5 Hyperlipidemia, unspecified; F17.210 Nicotine dependence, cigarettes, uncomplicated; I25.2 Old myocardial infarction; J45.909 Unspecified asthma, uncomplicated; K21.9 Gastro-esophageal reflux disease without esophagitis; M19.011 Primary osteoarthritis, right shoulder; M19.012 Primary osteoarthritis, left shoulder; M17.0 Bilateral primary osteoarthritis of knee; N42.9 Disorder of prostate, unspecified; F40.240 Claustrophobia; Z79.02 Long term (current) use of antithrombotics/antiplatelets; Z79.82 Long term (current) use of aspirin; Z79.899 Other long term (current) drug therapy; Z95.5 Presence of coronary angioplasty implant and graft; Z87.442 Personal history of urinary calculi; Z91.040 Latex allergy status; Z80.6 Family history of leukemia; Z82.49 Family history of ischemic heart disease and other diseases of the circulatory system; Z83.3 Family history of diabetes mellitus; Z71.6 Tobacco abuse counseling; Y84.0 Cardiac catheterization as the cause of abnormal reaction of the patient, or of later complication, without mention of misadventure at the time of the procedure
CPT/HCPCS: 36415; 71046; 80048; 80053; 80061; 83735; 84484; 85025; 85610; 85730; 93005; 93306; 93458; 96365; 96366; 96376; 99291

== ENCOUNTER 2019-07-25 11:26 | Emergency (ER) | payer MEDICARE ==
[2019-07-25 12:35] VITALS: TEMP 99.9
[2019-07-25] MEDS: SODIUM CHLORIDE 0.9% 500 ML 500 ML IV SCH (14:02)
--- NOTE | 2019-07-25 14:04 | XR ---
EXAMINATION TYPE: XR chest 2V DATE OF EXAM: 07/25/2019 COMPARISON: Prior chest x-ray 03/13/2019 HISTORY: Fever TECHNIQUE: Frontal and lateral views of the chest are obtained. FINDINGS: There is no focal air space opacity, pleural effusion, or pneumothorax seen. The cardiac silhouette size is within normal limits. Thoracic cord stimulator is noted incidentally. The osseou s structures are intact. IMPRESSION: No acute cardiopulmonary process.
[2019-07-25 14:19] LABS: Basophils # (A) 0.1 k/uL (0-0.2); Basophils % (A) 1 %; Eosinophils # (A) 0.3 k/uL (0-0.7); Eosinophils % (A) 2 %; HCT 44.7 % (39.0-53.0); Lymphocytes # (A) 2.1 k/uL (1.0-4.8); Lymphocytes % (A) 16 %; MCH 29.6 pg (25.0-35.0); MCHC 33.6 g/dL (31.0-37.0); MCV 87.9 fL (80.0-100.0); Mean Platelet Volume 7.7; Monocytes # (A) 0.8 k/uL (0-1.0); Monocytes % (A) 6 %; Neutrophils # (A) 9.9 k/uL (1.3-7.7); Neutrophils % (A) 74 %; Platelet Count 329 k/uL (150-450); RBC 5.08 m/uL (4.30-5.90); RDW 12.6 % (11.5-15.5); WBC 13.4 k/uL (3.8-10.6)
[2019-07-25] MEDS ORDERED: AMPICILLIN-SULBACTAM 3 GM in SODIUM CHLORIDE 0.9% 100 ML IVPB STA (14:19)
[2019-07-25 14:25] LABS: ALT 25 U/L (4-49); AST 29 U/L (17-59); African American GFR (CKD) >90 (>60 ml/min/1.73 sqM); Albumin 4.4 g/dL (3.5-5.0); Alkaline Phosphatase 122 U/L (38-126); Anion Gap 12 mmol/L; Blood Urea Nitrogen 22 mg/dL (9-20); Calcium 9.6 mg/dL (8.4-10.2); Carbon Dioxide 23 mmol/L (22-30); Chloride 103 mmol/L (98-107); Glucose 99 mg/dL (74-99); Non-African American GFR(CKD) >90 (>60 ml/min/1.73 sqM); Potassium 4.4 mmol/L (3.5-5.1); Sodium 138 mmol/L (137-145); Total Bilirubin 0.6 mg/dL (0.2-1.3); Total Protein 7.9 g/dL (6.3-8.2)
--- NOTE | 2019-07-25 14:47 | ED ---
General Adult HPI - General Chief complaint: Dental/Oral Stated complaint: dental infection/chest congestion Time Seen by Provider: 07/25/19 12:44 Source: patient, RN notes reviewed Mode of arrival: ambulatory Limitations: no limitations - History of Present Illness Initial comments: 53-year-old male with a couple dictated past medical history presents to the emergency department for multiple complaints. Patient states that he has had right-sided dental pain for the past 5 days. He states that he has swelling on his lower face that seems to go into his neck. States the swelling did improve. Patient also developed a cough and congestion today. States he called his dentist and he recommended he come to the ER. Patient denies fevers or chills at home but is noted to have a low-grade temperature 99.9 here in the emergency department. He denies any neck stiffness. Denies headaches. Patient has no other complaints at this time including shortness of breath, chest pain, abdominal pain, nausea or vomiting, headache, or visual changes. - Related Data Home Medications Medication Instructions Recorded Confirmed Omeprazole 40 mg PO DAILY 06/02/17 03/13/19 Furosemide [Lasix] 20 mg PO DAILY 05/23/18 03/13/19 Metoprolol Tartrate [Lopressor] 50 mg PO BID 05/23/18 03/13/19 Potassium Chloride ER [K-Dur 10] 10 meq PO DAILY 05/23/18 03/13/19 Rosuvastatin Calcium [Crestor] 40 mg PO HS 05/23/18 03/13/19 Varenicline [Chantix Continuing 1 mg PO BID 07/25/19 07/25/19 Pack] Previous Rx's Medication Instructions Recorded Clopidogrel [Plavix] 75 mg PO DAILY #30 tab 10/03/16 Nitroglycerin Sl Tabs [Nitrostat] 0.4 mg SUBLINGUAL Q5M PRN #25 tab 10/03/16 Aspirin EC [Ecotrin Low Dose] 81 mg PO DAILY #30 tablet. 03/15/19 amLODIPine [Norvasc] 5 mg PO DAILY #30 tab 03/15/19 Penicillin V Potassium [Pen Vee K] 500 mg PO Q6H 10 Days #40 tablet 07/25/19 Allergies Allergy/AdvReac Type Severity Reaction Status Date / Time latex Allergy Rash/Hives Verified 07/25/19 12:35 Review of Systems ROS Statement: Those systems with pertinent positive or pertinent negative responses have been documented in the HPI. ROS Other: All systems not noted in ROS Statement are negative. Past Medical History Past Medical History: Asthma, Coronary Artery Disease (CAD), Chest Pain / Angina, GERD/Reflux, Hyperlipidemia, Hypertension, Myocardial Infarction ([place]), Osteoarthritis (OA), Prostate Disorder, Skin Disorder Additional Past Medical History / Comment(s): palpitations, uticaria vasculitis,ReFlex sympathetic dystrophy syndrome (nerve disorder, has implanted device in lt hip). kidney stones Last Myocardial Infarction Date:: 1986 (was told but did not know) and 06-02-17 History of Any Multi-Drug Resistant Organisms: None Reported Past Surgical History: Heart Catheterization With Stent, Hernia Repair, Tonsillectomy Additional Past Surgical History / Comment(s): cystoscopy, device in left hip fo r rsd, 5x hernia sx5, tonsillectomy and adenoidectomy, colonoscopy. Past Anesthesia/Blood Transfusion Reactions: Family History of Problems w/ Anesthesia Additional Past Anesthesia/Blood Transfusion Reaction / Comment(s): mom had bp probelms after aa. hx of clausterphobia Date of Last Stent Placement:: 06/02/17 Past Psychological History: No Psychological Hx Reported Smoking Status: Current every day smoker Past Alcohol Use History: None Reported Past Drug Use History: None Reported - Past Family History Father Family Medical History: Cancer, Congestive Heart Failure (CHF) Additional Family Medical History / Comment(s): Father at age 91 from congestive heart failure. He also had history of leukemia. Mother Family Medical History: Dementia, Myocardial Infarction ([place]) Additional Family Medical History / Comment(s): Mother at age 90 from dementia. She also has history of pacemaker. Brother(s) Family Medical History: Coronary Artery Disease (CAD) Additional Family Medical History / Comment(s): Patient has 2 brothers one of the brothers with CAD. Sister(s) Family Medical History: Diabetes Mellitus Additional Family Medical History / Comment(s): Patient had 2 sisters one of them at age of 56 from diabetes complications. Daughter(s) Family Medical History: No Reported History, Diabetes Mellitus Additional Family Medical History / Comment(s): Patient has 3 daughters no major medical problems. Son(s) Family Medical History: No Reported History Additional Family Medical History / Comment(s): Patient has one son no major medical problems. General Exam Limitations: no limitations General appearance: alert, in no apparent distress Head exam: Present: atraumatic, normocephalic, normal inspection Eye exam: Present: normal appearance, PERRL, EOMI. Absent: scleral icterus, conjunctival injection, periorbital swelling ENT exam: Present: normal exam, mucous membranes moist, TM's normal bilaterally, normal external ear exam. Absent: normal oropharynx (Minimal left sided mandibular edema. Patient has tenderness to the left lower molar. There is no abscess identified.) Neck exam: Present: normal inspection, full ROM. Absent: tenderness, meningismus, lymphadenopathy Respiratory exam: Present: normal lung sounds bilaterally. Absent: respiratory distress, wheezes, rales, rhonchi, stridor Cardiovascular Exam: Present: regular rate, normal rhythm, normal heart sounds. Absent: systolic murmur, diastolic murmur, rubs, gallop, clicks GI/Abdominal exam: Present: soft, normal bowel sounds. Absent: distended, tenderness, guarding, rebound, rigid Neurological exam: Present: alert Course Vital Signs 07/25/19 07/25/19 12:32 15:00 Temperature 99.9 F H Pulse Rate 73 75 Respiratory 20 18 Rate Blood Pressure 131/85 129/67 O2 Sat by Pulse 99 99 Oximetry Medical Decision Making - Medical Decision Making HPI and physical exam is negative minute. Vitals show low-grade fever however but is otherwise stable. Physical exam is generally unremarkable. Patient does have some edema noted inferior to the left mandible. There is no sublingual edema. No trismus. Patient able to swallow without difficulty. No neck stiffness. Mild leukocytosis of 13.4. CMP unremarkable. Influenza is negative. Chest x-ray was obtained given history of cough starting today which was negative for acute cardiopulmonary process. CT soft tissue neck with contrast showed inflammatory changes noted in the right maxillary sinus. Possible left maxilla shows possible periapical abscess however i do not see this on exam. At this time patient will be treated with penicillin. He will follow up with his dentist. He will return if he has any worsening symptoms.I discussed this case with attending Dr. Kraus who agrees with this assessment and treatment plan. - Lab Data Result diagrams: 07/25/19 13:47 07/25/19 13:47 Lab Results 07/25/19 07/25/19 07/25/19 Range/Units 13:35 13:47 13:47 WBC 13.4 H (3.8-10.6) k/uL RBC 5.08 (4.30-5.90) m/uL Hgb 15.0 (13.0-17.5) gm/dL Hct 44.7 (39.0-53.0) % MCV 87.9 (80.0-100.0) fL MCH 29.6 (25.0-35.0) pg MCHC 33.6 (31.0-37.0) g/dL RDW 12.6 (11.5-15.5) % Plt Count 329 (150-450) k/uL Neutrophils % 74 % Lymphocytes % 16 % Monocytes % 6 % Eosinophils % 2 % Basophils % 1 % Neutrophils # 9.9 H (1.3-7.7) k/uL Lymphocytes # 2.1 (1.0-4.8) k/uL Monocytes # 0.8 (0-1.0) k/uL Eosinophils # 0.3 (0-0.7) k/uL Basophils # 0.1 (0-0.2) k/uL Sodium 138 (137-145) mmol/L Potassium 4.4 (3.5-5.1) mmol/L Chloride 103 (98-107) mmol/L Carbon Dioxide 23 (22-30) mmol/L Anion Gap 12 mmol/L BUN 22 H (9-20) mg/dL Creatinine 0.73 (0.66-1.25) mg/dL Est GFR (CKD-EPI)AfAm >90 (>60 ml/min/1.73 sqM) Est GFR (CKD-EPI)NonAf >90 (>60 ml/min/1.73 sqM) Glucose 99 (74-99) mg/dL Plasma Lactic Acid Lázaro (0.7-2.0) mmol/L Calcium 9.6 (8.4-10.2) mg/dL Total Bilirubin 0.6 (0.2-1.3) mg/dL AST 29 (17-59) U/L ALT 25 (4-49) U/L Alkaline Phosphatase 122 (38-126) U/L Total Protein 7.9 (6.3-8.2) g/dL Albumin 4.4 (3.5-5.0) g/dL Influenza Type A RNA Not Detected (Not Detectd) Influenza Type B (PCR) Not Detected (Not Detectd) 07/25/19 Range/Units 13:47 WBC (3.8-10.6) k/uL RBC (4.30-5.90) m/uL Hgb (13.0-17.5) gm/dL Hct (39.0-53.0) % MCV (80.0-100.0) fL MCH (25.0-35.0) pg MCHC (31.0-37.0) g/dL RDW (11.5-15.5) % Plt Count (150-450) k/uL Neutrophils % % Lymphocytes % % Monocytes % % Eosinophils % % Basophils % % Neutrophils # (1.3-7.7) k/uL Lymphocytes # (1.0-4.8) k/uL Monocytes # (0-1.0) k/uL Eosinophils # (0-0.7) k/uL Basophils # (0-0.2) k/uL Sodium (137-145) mmol/L Potassium (3.5-5.1) mmol/L Chloride (98-107) mmol/L Carbon Dioxide (22-30) mmol/L Anion Gap mmol/L BUN (9-20) mg/dL Creatinine (0.66-1.25) mg/dL Est GFR (CKD-EPI)AfAm (>60 ml/min/1.73 sqM) Est GFR (CKD-EPI)NonAf (>60 ml/min/1.73 sqM) Glucose (74-99) mg/dL Plasma Lactic Acid Lázaro 1.2 (0.7-2.0) mmol/L Calcium (8.4-10.2) mg/dL Total Bilirubin (0.2-1.3) mg/dL AST (17-59) U/L ALT (4-49) U/L Alkaline Phosphatase (38-126) U/L Total Protein (6.3-8.2) g/dL Albumin (3.5-5.0) g/dL Influenza Type A RNA (Not Detectd) Influenza Type B (PCR) (Not Detectd) Disposition Clinical Impression: Pain, dental Disposition: HOME SELF-CARE Condition: Good Instructions (If sedation given, give patient instructions): Toothache (ED) Additional Instructions: Please take antibiotics as directed. Call dentist tomorrow for a follow-up. Return to the emergency department if you have any worsening symptoms. Prescriptions: Penicillin V Potassium [Pen Vee K] 500 mg PO Q6H 10 Days #40 tablet Is patient prescribed a controlled substance at d/c from ED?: No Referrals: Andrade Way MD [Primary Care Provider] - 1-2 days Time of Disposition: 15:33
--- NOTE | 2019-07-25 15:03 | CT ---
EXAMINATION TYPE: CT soft tissue neck w con DATE OF EXAM: 07/25/2019 2:38 PM COMPARISON: HISTORY: Recent tooth infection. Facial and neck swelling with fever. CT DLP: 431.4 mGycm Automated exposure control for dose reduction was used. CONTRAST: CT scan of the neck is performed following with IV Contrast, patient injected with 100 mL of Isovue 3 00. Axial images are obtained, coronal and sagittal reformatted images are reviewed. FINDINGS: Lung apices show emphysematous change. Inflammatory change noted in the right maxillary sin us. Airway: No gross abnormality seen. Parotid/submandibular glands: No gross abnormality seen. Carotid/Vascular Structures: Patent Osseous Structures: Left maxilla shows possible periapical abscess Other: Question some local swelling in the subcutaneous tissues of the maxillary region on the left IMPRESSION: Findings consistent with patient's history
[2019-07-25 15:10] VITALS: BP 129/67; PULSE 75; RESP 18
[2019-07-25] MEDS ORDERED: PENICILLIN VK 500MG STARTER 4 TAB BTL PO STA (15:34)
== END 2019-07-25 16:00 | disposition home or self-care (01) ==
LOC: EC 11:26
DX: R05 Cough (principal); K08.89 Other specified disorders of teeth and supporting structures; D72.829 Elevated white blood cell count, unspecified; J32.9 Chronic sinusitis, unspecified; R60.0 Localized edema; R50.9 Fever, unspecified; R09.89 Other specified symptoms and signs involving the circulatory and respiratory systems; I25.119 Atherosclerotic heart disease of native coronary artery with unspecified angina pectoris; K21.9 Gastro-esophageal reflux disease without esophagitis; E78.5 Hyperlipidemia, unspecified; I10 Essential (primary) hypertension; I25.2 Old myocardial infarction; G90.529 Complex regional pain syndrome I of unspecified lower limb; F17.200 Nicotine dependence, unspecified, uncomplicated; Z91.040 Latex allergy status; Z79.899 Other long term (current) drug therapy; Z95.5 Presence of coronary angioplasty implant and graft; Z90.89 Acquired absence of other organs; Z96.89 Presence of other specified functional implants
CPT/HCPCS: 99284 ×2; 96365 ×2; 96361 ×2; 36415; 80053; 83605; 85025; 87040; 87502; 71046; 70491; J0295; Q9967

== ENCOUNTER 2020-06-29 11:30 | Emergency (ER) | payer MEDICARE ==
[2020-06-29 12:04] VITALS: RESP 18; TEMP 98.2
[2020-06-29] MEDS ORDERED: KETOROLAC 15 MG/ML 1 ML VIAL IM STA (12:19)
--- NOTE | 2020-06-29 12:30 | ED ---
Back Pain HPI - General Source: patient, family Mode of arrival: wheelchair Limitations: no limitations <Shiv Armijo - Last Filed: 06/29/20 13:21> <Sherry Johnson - Last Filed: 06/29/20 15:18> - General Chief Complaint: Back Pain/Injury Stated Complaint: Fall 2xdays/back/rib pain Time Seen by Provider: 06/29/20 12:11 - History of Present Illness Initial Comments: Patient is a 54-year-old white male who came to the emergency department with his complaining of mid to low back pain. He stated that he fell on Wednesday getting out of the shower, he landed on his ribs which he also says is painful. He noted that his low back on his left side is tender to the touch and radiates to the left groin and hip. Patient reports having a stimulator in his left hip. Patient has mild right mid to low back tenderness. He stated that nothing is helped the pain. reports that he has to use a walker to get around as she is fearful that if he falls she will go to get him back up. She noted that this morning he said his legs felt like they couldn't hold his weight about. He also noted that since the fall he's had to use his arms to help lift his left leg. he noted that he has had back pain before but has progressively gotten worse since Wednesday approximately an 8-9 out of 10. He noted that due to rib pain deep inhalation uncomfortable. Patient denies any chest pain, palpitations, dizziness, lightheadedness, bladder/bowel incontinence, loss of sensation in his legs, (Shiv Armijo) - Related Data Home Medications Medication Instructions Recorded Confirmed Omeprazole 40 mg PO DAILY 06/02/17 03/13/19 Furosemide [Lasix] 20 mg PO DAILY 05/23/18 03/13/19 Metoprolol Tartrate [Lopressor] 50 mg PO BID 05/23/18 03/13/19 Potassium Chloride ER [K-Dur 10] 10 meq PO DAILY 05/23/18 03/13/19 Rosuvastatin Calcium [Crestor] 40 mg PO HS 05/23/18 03/13/19 Varenicline [Chantix Continuing 1 mg PO BID 07/25/19 07/25/19 Pack] Previous Rx's Medication Instructions Recorded Clopidogrel [Plavix] 75 mg PO DAILY #30 tab 10/03/16 Nitroglycerin Sl Tabs [Nitrostat] 0.4 mg SUBLINGUAL Q5M PRN #25 tab 10/03/16 Aspirin EC [Ecotrin Low Dose] 81 mg PO DAILY #30 tablet. 03/15/19 amLODIPine [Norvasc] 5 mg PO DAILY #30 tab 03/15/19 Penicillin V Potassium [Pen Vee K] 500 mg PO Q6H 10 Days #40 tablet 07/25/19 Ibuprofen [Motrin] 600 mg PO Q6HR PRN #30 tab 06/29/20 Lidocaine 5% Patch [Lidoderm] 1 patch TOPICAL DAILY #30 patch 06/29/20 Lidocaine 5% Patch [Lidoderm] 1 patch TOPICAL DAILY #30 patch 06/29/20 Methocarbamol [Robaxin-750] 750 mg PO TID #30 tablet 06/29/20 Allergies Allergy/AdvReac Type Severity Reaction Status Date / Time latex Allergy Rash/Hives Verified 06/29/20 12:04 Review of Systems ROS Other: All systems not noted in ROS Statement are negative. <Shiv Armijo - Last Filed: 06/29/20 13:21> ROS Other: All systems not noted in ROS Statement are negative. <Sherry Johnson - Last Filed: 06/29/20 15:18> ROS Statement: Those systems with pertinent positive or pertinent negative responses have been documented in the HPI. Past Medical History Past Medical History: Asthma, Coronary Artery Disease (CAD), Chest Pain / Angina, GERD/Reflux, Hyperlipidemia, Hypertension, Myocardial Infarction ([place]), Osteoarthritis (OA), Prostate Disorder, Skin Disorder Additional Past Medical History / Comment(s): palpitations, uticaria vasculitis,ReFlex sympathetic dystrophy syndrome (nerve disorder, has implanted device in lt hip). kidney stones Last Myocardial Infarction Date:: 1986 (was told but did not know) and 06-02-17 History of Any Multi-Drug Resistant Organisms: None Reported Past Surgical History: Heart Catheterization With Stent, Hernia Repair, Tonsillectomy Additional Past Surgical History / Comment(s): cystoscopy, device in left hip for rsd, 5x hernia sx5, tonsillectomy and adenoidectomy, colonoscopy. Past Anesthesia/Blood Transfusion Reactions: Family History of Problems w/ Anesthesia Additional Past Anesthesia/Blood Transfusion Reaction / Comment(s): mom had bp probelms after aa. hx of clausterphobia Date of Last Stent Placement:: 06/02/17 Past Psychological History: Depression Smoking Status: Former smoker Past Alcohol Use History: None Reported Past Drug Use History: None Reported - Past Family History Father Family Medical History: Cancer, Congestive Heart Failure (CHF) Additional Family Medical History / Comment(s): Father at age 91 from congestive heart failure. He also had history of leukemia. Mother Family Medical History: Dementia, Myocardial Infarction ([place]) Additional Family Medical History / Comment(s): Mother at age 90 from dementia. She also has history of pacemaker. Brother(s) Family Medical History: Coronary Artery Disease (CAD) Additional Family Medical History / Comment(s): Patient has 2 brothers one of the brothers with CAD. Sister(s) Family Medical History: Diabetes Mellitus Additional Family Medical History / Comment(s): Patient had 2 sisters one of them at age of 56 from diabetes complications. Daughter(s) Family Medical History: No Reported History, Diabetes Mellitus Additional Family Medical History / Comment(s): Patient has 3 daughters no major medical problems. Son(s) Family Medical History: No Reported History Additional Family Medical History / Comment(s): Patient has one son no major medical problems. <ArmijoShiv reagan - Last Filed: 06/29/20 13:21> General Exam Limitations: no limitations General appearance: alert, in distress (Mild) Head exam: Present: atraumatic, normocephalic, normal inspection Eye exam: Present: normal appearance, PERRL, EOMI. Absent: scleral icterus, conjunctival injection, periorbital swelling Neck exam: Present: normal inspection. Absent: tenderness, meningismus, lymphadenopathy Respiratory exam: Present: normal lung sounds bilaterally. Absent: respiratory distress, wheezes, rales, rhonchi, stridor Cardiovascular Exam: Present: regular rate, normal rhythm, normal heart sounds. Absent: systolic murmur, diastolic murmur, rubs, gallop, clicks Extremities exam: Present: normal inspection, full ROM, normal capillary refill. Absent: tenderness, pedal edema, joint swelling, calf tenderness Back exam: Present: tenderness, paraspinal tenderness (Severe on the left side from mid to low back, mild tenderness on right compared to left from the back to low back) Neurological exam: Present: alert, oriented X3, CN II-XII intact, other (Radicular symptoms wrapping from left lower back to groin and left hip. Weakness in left lower extremity.) Psychiatric exam: Present: normal affect, normal mood Skin exam: Present: warm, dry, intact, normal color. Absent: rash <Shiv Armijo - Last Filed: 06/29/20 13:21> Course Vital Signs 06/29/20 11:59 Temperature 98.2 F Pulse Rate 60 Respiratory 18 Rate Blood Pressure 125/85 O2 Sat by Pulse 97 Oximetry Medical Decision Making - Radiology Data Radiology results: report reviewed, image reviewed <Shiv Armijo - Last Filed: 06/29/20 13:21> <Sherry Johnson - Last Filed: 06/29/20 15:18> - Medical Decision Making 54-year-old male status post fall in shower [id number]/2021. Ordered cervical spine, thoracic spine, lumbar spine x-ray. Ordered chest x-ray due to rib pain. Ordered 15 mg of Toradol IM [address] of the thoracic lumbar spine without contrast ordered (Shiv Armijo) Patient care was anatomy, 54-year-old obese male had fallen earlier in the week and now having worsening back pain. At time of sign out patient received Toradol had negative x-rays and was pending computed tomography scan. Upon my evaluation patient reports some improvement in his back pain with Toradol, reports his primary concern is whether or not he will be able to have his right knee replacement by Dr. Quarles later this week given that he is having back pain. Computed tomography scan with no acute findings chronic changes were noted. Results were discussed with the patient, advised the patient he needs to discuss his fall and back pain with the surgeon Dr. Quarles prior to having knee replacement as back pain may limit his rehab and delay healing. Patient's breast understanding of this. Patient was given a Tylenol 3 starter pack, 600 mg Motrin and Robaxin upon discharge. (Sherry Johnson) - Radiology Data Thoracic spine x-ray: No acute osseous abnormality. Chest x-ray: No acute displaced rib fractures no pneumothorax. Lumbar x-ray: No acute osseous abnormality. Cervical x-ray: No acute osseous abnormality, foraminal and narrowing C4 to C5 (Shiv Armijo) Disposition <Shiv Armijo - Last Filed: 06/29/20 13:21> Is patient prescribed a controlled substance at d/c from ED?: No <AlexSherry P - Last Filed: 06/29/20 15:18> Clinical Impression: Mechanical back pain, Fall at home Disposition: HOME SELF-CARE Condition: Stable Instructions (If sedation given, give patient instructions): Acute Low Back Pain (ED) Additional Instructions: Contact Dr Quarels to discuss back pain prior to scheduled surgery this week Prescriptions: Lidocaine 5% Patch [Lidoderm] 1 patch TOPICAL DAILY #30 patch Lidocaine 5% Patch [Lidoderm] 1 patch TOPICAL DAILY #30 patch Ibuprofen [Motrin] 600 mg PO Q6HR PRN #30 tab PRN Reason: Pain Methocarbamol [Robaxin-750] 750 mg PO TID #30 tablet Referrals: Andrade Way MD [Primary Care Provider] - 1-2 days
--- NOTE | 2020-06-29 13:13 | XR ---
EXAMINATION TYPE: XR chest 1V DATE OF EXAM: 06/29/2020 COMPARISON: 07/25/2019 INDICATION: Rib pain fall TECHNIQUE: Single frontal view of the chest is obtained. FINDINGS: The heart size is normal. The pulmonary vasculature is normal. Plate atelectasis at the left base. No pneumothorax is evident. No displaced rib fractures are identi fied. IMPRESSION: 1. Platelike atelectasis left base
--- NOTE | 2020-06-29 13:14 | XR ---
EXAMINATION TYPE: XR thoracic spine 2V DATE OF EXAM: 06/29/2020 COMPARISON: None HISTORY: Fall with back pain TECHNIQUE: Three-view thoracic spine. Frontal view is somewhat underpenetrated. FINDINGS: Stimulator leads are in the lower thoracic canal. Vertebral body heights are preserved. Dis c heights appear preserved. Alignment appears normal. Pedicles are not well visualized. Follow-up exa ms can be performed as clinically indicated IMPRESSION: 1. No acute osseous abnormality radiographically evident.
--- NOTE | 2020-06-29 13:15 | XR ---
EXAMINATION TYPE: XR cervical spine comp DATE OF EXAM: 06/29/2020 COMPARISON: None HISTORY: Fall with neck pain TECHNIQUE: Five-view cervical spine FINDINGS: Bilateral foraminal narrowing at C4-5 is evident. Remaining foramen are patent. There is te ar narrowing of disc height C4-5 C5-6. The C6-7 and C7-T1 levels are poorly visualized. No acute fractures are identified. IMPRESSION: 1. No acute osseous abnormality. 2. Foraminal narrowing C4-5 bilaterally
--- NOTE | 2020-06-29 13:16 | XR ---
EXAMINATION TYPE: XR lumbar spine 2 or 3V DATE OF EXAM: 06/29/2020 COMPARISON: 10/26/2009 HISTORY: Fall, pain TECHNIQUE: Three-view lumbar spine FINDINGS: There 5 lumbar-type vertebral bodies. Pedicles are intact. There is lumbarization of S1. St imulator leads are present extending to the T11 level. Disc heights are preserved. Vertebral body hei ghts are preserved. IMPRESSION: 1. No acute osseous abnormality lumbar spine
--- NOTE | 2020-06-29 14:59 | CT ---
EXAMINATION TYPE: CT thor lumbar spine wo con DATE OF EXAM: 06/29/2020 COMPARISON: 10/20/2016 and 05/23/2018 HISTORY: Acute back pain with weakness CT DLP: 3080.3 mGycm Automated exposure control for dose reduction was used. Images were obtained from the level of T2 to the coccyx with no contrast. The thoracic and lumbar vertebra have normal alignment. Disc spaces are fairly normal. There is no co mpression fracture. There is no thoracic paraspinal mass. There is minor spur formation of the endpla darren. Sacroiliac joints are intact. I see no bony destructive process. Sacral segments appear normal. There is spinal catheter noted. There is narrowing of the spinal canal at L5-S1 related to ligamentum flavum thickening and facet arthropathy. IMPRESSION: No fracture. No change compared to old exam. Mild spinal stenosis at L5-S1 mild degenerative spur for mation.
[2020-06-29] MEDS ORDERED: ACET/COD 300 MG/30 MG STARTER PACK 6 TAB BTL PO STA (15:14)
[2020-06-29] MEDS ORDERED: ORPHENADRINE 30 MG/ML 2 ML VIAL IM STA (15:14)
[2020-06-29 15:33] VITALS: BP 127/86; PULSE 65
== END 2020-06-29 15:33 | disposition home or self-care (01) ==
LOC: EC 11:30
DX: M54.5 Low back pain (principal); M54.6 Pain in thoracic spine; M25.552 Pain in left hip; K21.9 Gastro-esophageal reflux disease without esophagitis; I10 Essential (primary) hypertension; E78.5 Hyperlipidemia, unspecified; Z79.899 Other long term (current) drug therapy; Z91.040 Latex allergy status; I25.2 Old myocardial infarction; Z87.891 Personal history of nicotine dependence; Z95.5 Presence of coronary angioplasty implant and graft; Z90.89 Acquired absence of other organs; W18.30XA Fall on same level, unspecified, initial encounter; Y93.E1 Activity, personal bathing and showering; Y92.002 Bathroom of unspecified non-institutional (private) residence as the place of occurrence of the external cause
CPT/HCPCS: 99284; 96372 ×2; 72070; 72050; 72100; 71045; 72128; 72131; J2360; J1885

== ENCOUNTER → 2021-01-01 | Outpatient (CLI) | payer MEDICARE ==
--- NOTE | 2021-01-01 12:12 | CTL ---
EXAMINATION TYPE: CT Low Dose Lung DATE OF EXAM ORDERED: 01/01/2021 COMPARISON: HISTORY: . Low Dose CT Lung Screening CT DLP: 165.[address] CTDI: 4.3 mGy IV CONTRAST USED: None. SCREENING VISIT: First visit COMPARISON: None. TECHNIQUE: Low dose computed tomography scan was performed through the chest at 1 millimeter thick se ctions and reconstructed images in the coronal plane at [address] DIAGNOSTIC QUALITY: Satisfactory FINDINGS: LUNG NODULES: Not presentLeft lung: no nodules identified.Right lung: no nodules identified. LUNGS: COPD: Severity: Mild. Scattered areas of linear parenchymal scarring bilaterally. Fibrosis: Severity:None Lymph nodes: None Other findings: None RIGHT PLEURAL SPACE: Effusion: None Calcification: None Thickening: None Pneumothorax: None LEFT PLEURAL SPACE: Effusion: None Calcification: None Thickening: None Pneumothorax: None HEART: Heart Size: Mildly enlarged Coronary calcification: Mild Pericardial effusion: None OTHER FINDINGS: Upper abdomen: No significant abnormality Bony thorax: Degenerative changes Supraclavicular region: No significant abnormalityOther: No significant abnormalityI IMPRESSION: No suspicious pulmonary nodules seen. FOLLOW UP CT CHEST RECOMMENDATION: Follow-up screening in one year. Smoking cessation advised. CT LUNG RAD: LUNG RAD CATEGORY 1 negative
== END | disposition home or self-care (01) ==
LOC: RADCTMAIN 11:13
PROVIDERS: ATTEND Internal Medicine Geriatric Medicine
DX: Z12.2 Encounter for screening for malignant neoplasm of respiratory organs (principal)
CPT/HCPCS: 71271

== ENCOUNTER → 2021-02-19 | Outpatient (CLI) | payer MEDICARE ==
[2021-02-19 15:13] LABS: Basophils # (A) 0.06 X 10*3/uL (0.00-0.10); Basophils % (A) 0.7 %; Eosinophils # (A) 0.32 X 10*3/uL (0.04-0.35); Eosinophils % (A) 3.9 %; HCT 43.3 % (39.6-50.0); HGB 13.9 g/dL (13.0-17.0); Lymphocytes # (A) 2.63 X 10*3/uL (0.90-5.00); Lymphocytes % (A) 32.3 %; MCH 28.3 pg (27.0-32.0); MCHC 32.1 g/dL (32.0-37.0); MCV 88.2 fL (80.0-97.0); Monocytes % (A) 8.6 %; Neutrophils # (A) 4.39 X 10*3/uL (1.80-7.70); Platelet Count 311 X 10*3/uL (140-440); RBC 4.91 X 10*6/uL (4.40-5.60); RDW 12.8 % (11.5-14.5); WBC 8.14 X 10*3/uL (4.50-10.00)
[2021-02-19 16:41] LABS: Hemoglobin A1C 5.8 % (4.0-6.0)
[2021-02-19 23:45] LABS: African American GFR (CKD) 110.3 (60.0-200.0); Albumin 4.6 g/dL (3.80-4.90); Albumin/Globulin Ratio 1.64 (1.60-3.17); Anion Gap 9.5 mmol/L (4.00-12.00); BUN/Creat Ratio 12.22 Ratio (12.00-20.00); Calcium 9.6 mg/dL (8.7-10.3); Carbon Dioxide 26.5 mmol/L (21.6-31.8); Chol/HDL Ratio 3.51; Globulin 2.8 g/dL (1.6-3.3); LDL Cholesterol,Calculated 77.6 mg/dL (0.0-131.0); Non-African American GFR(CKD) 95.1 (60.0-200.0); Potassium 4.7 mmol/L (3.5-5.5); Total Bilirubin 0.4 mg/dL (0.3-1.2); Total Protein 7.4 g/dL (6.2-8.2); VLDL Calculation 20.4 mg/dL (5.00-40.00)
== END | disposition home or self-care (01) ==
LOC: LABWHC1 10:02
PROVIDERS: ATTEND Internal Medicine Geriatric Medicine
DX: D34 Benign neoplasm of thyroid gland (principal); I25.798 Atherosclerosis of other coronary artery bypass graft(s) with other forms of angina pectoris; R73.9 Hyperglycemia, unspecified
CPT/HCPCS: 36415; 80053; 80061; 83036; 84439; 84443; 85025

== ENCOUNTER → 2021-05-28 | Outpatient (CLI) | payer MEDICARE ==
--- NOTE | 2021-05-28 19:02 | US ---
EXAMINATION TYPE: US thyroid st tissue head/neck DATE OF EXAM: 05/28/2021 COMPARISON: 07/30/2017 CLINICAL HISTORY: 55-year-old male E04.1 Thyroid nodule. TECHNIQUE: Multiple sonographic images of the thyroid gland are obtained. GLAND SIZE: Right Lobe: 4.5 x 1.9 x 2.2 cm Overall Parenchyma: Mildly heterogenous Left Lobe: 4.4 x 2.1 x 1.7 cm Overall Parenchyma: Mildly heterogeneous Isthmus Thickness: 0.4 cm NODULES Inferior to right thyroid possible parathyroid = 1.3 x 1.0 x 1.1cm prior size: 1.3 x 1.1 x 0.9 cm. LEFT: # of nodules measured on left: 1 1. 0.5 X 0.4 x 0.5 cm, mid benign colloid cyst. Prior size: 0.4 x 0.3 x 0.3 cm ISTHMUS: # of nodules measured in the isthmus: 0 Bilateral neck scanned, no evidence of lymphadenopathy. IMPRESSION: 1. Stable 1.3 cm solid nodule inferior to the right thyroid lobe, possible parathyroid gland. 2. A stable 5 mm colloid cyst on the left.
== END | disposition home or self-care (01) ==
LOC: RADUSWWP 12:39
PROVIDERS: ATTEND Internal Medicine
DX: E04.2 Nontoxic multinodular goiter (principal)
CPT/HCPCS: 76536

== ENCOUNTER 2022-06-01 15:26 | Emergency (ER) | payer MEDICARE ==
[2022-06-01 16:23] VITALS: BP 140/91; PULSE 77; RESP 18; TEMP 98
--- NOTE | 2022-06-01 18:51 | ED ---
URI HPI - General Chief Complaint: Upper Respiratory Infection Stated Complaint: Upper Resp/Congestion/GI issue Time Seen by Provider: 06/01/22 16:51 Source: patient Mode of arrival: ambulatory Limitations: no limitations - History of Present Illness Initial Comments: Patient is a 56-year-old male presenting with chief complaint of URI-like symptoms. Patient has had cough and congestion for the last 3 weeks. He admits to pain and pressure over the sinuses and productive cough. He admits to chest congestion, he states that discomfort is worsened by coughing. Admits to diarrhea. No nausea or vomiting. No abdominal pain. No difficulty breathing. No palpitations or weakness. No sore throat or difficulty swallowing. No numbness, tingling, headache, vision or hearing changes, neck pain or stiffness, fever, chills. No pain down the arm or up the neck. No diaphoresis. No palpitations. Pain does not worsen with exertion. - Related Data Home Medications Medication Instructions Recorded Confirmed Omeprazole 40 mg PO DAILY 06/02/17 03/13/19 Furosemide [Lasix] 20 mg PO DAILY 05/23/18 03/13/19 Metoprolol Tartrate [Lopressor] 50 mg PO BID 05/23/18 03/13/19 Potassium Chloride ER [K-Dur 10] 10 meq PO DAILY 05/23/18 03/13/19 Rosuvastatin Calcium [Crestor] 40 mg PO HS 05/23/18 03/13/19 Varenicline [Chantix Continuing 1 mg PO BID 07/25/19 07/25/19 Pack] Previous Rx's Medication Instructions Recorded Clopidogrel [Plavix] 75 mg PO DAILY #30 tab 10/03/16 Nitroglycerin Sl Tabs [Nitrostat] 0.4 mg SUBLINGUAL Q5M PRN #25 tab 10/03/16 Aspirin EC [Ecotrin Low Dose] 81 mg PO DAILY #30 tablet. 03/15/19 amLODIPine [Norvasc] 5 mg PO DAILY #30 tab 03/15/19 Penicillin V Potassium [Pen Vee K] 500 mg PO Q6H 10 Days #40 tablet 07/25/19 Ibuprofen [Motrin] 600 mg PO Q6HR PRN #30 tab 06/29/20 Lidocaine 5% Patch [Lidoderm] 1 patch TOPICAL DAILY #30 patch 06/29/20 Lidocaine 5% Patch [Lidoderm] 1 patch TOPICAL DAILY #30 patch 06/29/20 methocarbamoL [Robaxin-750] 750 mg PO TID #30 tablet 06/29/20 methylPREDNISolone Dose Pack 4 mg PO DIRECTED #1 packet 06/01/22 [Medrol Dose Pack] Allergies Allergy/AdvReac Type Severity Reaction Status Date / Time latex Allergy Rash/Hives Verified 06/29/20 12:04 Review of Systems ROS Statement: Those systems with pertinent positive or pertinent negative responses have been documented in the HPI. ROS Other: All systems not noted in ROS Statement are negative. Past Medical History Past Medical History: Asthma, Coronary Artery Disease (CAD), Chest Pain / A ngina, GERD/Reflux, Hyperlipidemia, Hypertension, Myocardial Infarction ([place]), Osteoarthritis (OA), Prostate Disorder, Skin Disorder Additional Past Medical History / Comment(s): palpitations, uticaria vasculitis,ReFlex sympathetic dystrophy syndrome (nerve disorder, has implanted device in lt hip). kidney stones Last Myocardial Infarction Date:: 1986 (was told but did not know) and 06-02-17 History of Any Multi-Drug Resistant Organisms: None Reported Past Surgical History: Heart Catheterization With Stent, Hernia Repair, Tonsillectomy Additional Past Surgical History / Comment(s): cystoscopy, device in left hip for rsd, 5x hernia sx5, tonsillectomy and adenoidectomy, colonoscopy. Past Anesthesia/Blood Transfusion Reactions: Family History of Problems w/ Anesthesia Additional Past Anesthesia/Blood Transfusion Reaction / Comment(s): mom had bp probelms after aa. hx of clausterphobia Date of Last Stent Placement:: 06/02/17 Past Psychological History: Depression Smoking Status: Former smoker Past Alcohol Use History: Rare Past Drug Use History: None Reported - Past Family History Father Family Medical History: Cancer, Congestive Heart Failure (CHF) Additional Family Medical History / Comment(s): Father at age 91 from congestive heart failure. He also had history of leukemia. Mother Family Medical History: Dementia, Myocardial Infarction ([place]) Additional Family Medical History / Comment(s): Mother at age 90 from dementia. She also has history of pacemaker. Brother(s) Family Medical History: Coronary Artery Disease (CAD) Additional Family Medical History / Comment(s): Patient has 2 brothers one of the brothers with CAD. Sister(s) Family Medical History: Diabetes Mellitus Additional Family Medical History / Comment(s): Patient had 2 sisters one of them at age of 56 from diabetes complications. Daughter(s) Family Medical History: No Reported History, Diabetes Mellitus Additional Family Medical History / Comment(s): Patient has 3 daughters no major medical problems. Son(s) Family Medical History: No Reported History Additional Family Medical History / Comment(s): Patient has one son no major medical problems. General Exam Limitations: no limitations General appearance: alert, in no apparent distress Head exam: Present: atraumatic, normocephalic, normal inspection Eye exam: Present: normal appearance Neck exam: Present: normal inspection, full ROM Respiratory exam: Present: normal lung sounds bilaterally. Absent: respiratory distress, wheezes, rales, rhonchi, stridor Cardiovascular Exam: Present: regular rate, normal rhythm, normal heart sounds. Absent: systolic murmur, diastolic murmur, rubs, gallop, clicks Neurological exam: Present: alert, oriented X3, CN II-XII intact Psychiatric exam: Present: normal affect, normal mood Skin exam: Present: warm, dry, intact, normal color. Absent: rash Course Vital Signs 06/01/22 16:18 Temperature 98.0 F Pulse Rate 77 Respiratory 18 Rate Blood Pressure 140/91 O2 Sat by Pulse 96 Oximetry Medical Decision Making - Medical Decision Making Patient is a 56-year-old male presenting with chief complaint of URI symptoms for the last 3 weeks. He also admits to chest congestion, and pain that worsens with coughing. On physical examination heart and lungs are clear to auscultation. Lab work shows no leukocytosis or anemia. CMP shows transaminitis. Troponin is less than 0.012. EKG shows no changes compared to previous EKG. Patient tested positive for Covid. Chest x-ray shows no acute cardiopulmonary process. Patient is educated on these findings. I offered to perform a second troponin, however patient declined. Decision was reached through shared decision making. Patient is requesting discharge home today, he states that this does not feel like when he had his ND. Prescription is sent for Medrol Dosepak to his pharmacy. Educated on supportive treatment and quarantine guidelines with Covid. Follow-up with PCP. Report back to ER with any new or worsening symptoms. Discussed return parameters and answered all questions. Patient conveyed verbal understanding and agreed to the plan. I discussed this case in detail with my attending Dr. Lynne - Lab Data Result diagrams: 06/01/22 19:25 06/01/22 19:25 Lab Results 06/01/22 06/01/22 06/01/22 Range/Units 16:23 19:25 19:25 WBC 4.8 (3.8-10.6) k/uL RBC 5.03 (4.30-5.90) m/uL Hgb 14.8 (13.0-17.5) gm/dL Hct 44.3 (39.0-53.0) % MCV 88.1 (80.0-100.0) fL MCH 29.5 (25.0-35.0) pg MCHC 33.4 (31.0-37.0) g/dL RDW 13.2 (11.5-15.5) % Plt Count 261 (150-450) k/uL MPV 8.3 Neutrophils % 37 % Lymphocytes % 44 % Monocytes % 9 % Eosinophils % 6 % Basophils % 1 % Neutrophils # 1.8 (1.3-7.7) k/uL Lymphocytes # 2.1 (1.0-4.8) k/uL Monocytes # 0.5 (0-1.0) k/uL Eosinophils # 0.3 (0-0.7) k/uL Basophils # 0.1 (0-0.2) k/uL Sodium 141 (137-145) mmol/L Potassium 3.6 (3.5-5.1) mmol/L Chloride 105 (98-107) mmol/L Carbon Dioxide 26 (22-30) mmol/L Anion Gap 10 mmol/L BUN 14 (9-20) mg/dL Creatinine 0.63 L (0.66-1.25) mg/dL Est GFR (CKD-EPI)AfAm >90 (>60 ml/min/1.73 sqM) Est GFR (CKD-EPI)NonAf >90 (>60 ml/min/1.73 sqM) Glucose 101 H (74-99) mg/dL Calcium 8.8 (8.4-10.2) mg/dL Total Bilirubin 0.6 (0.2-1.3) mg/dL AST 174 H (17-59) U/L ALT 123 H (4-49) U/L Alkaline Phosphatase 138 H (38-126) U/L Troponin I (0.000-0.034) ng/mL Total Protein 7.9 (6.3-8.2) g/dL Albumin 4.3 (3.5-5.0) g/dL Influenza Type A (PCR) Not Detected (Not Detectd) Influenza Type B (PCR) Not Detected (Not Detectd) RSV (PCR) Not Detected (Not Detectd) SARS-CoV-2 (PCR) Detected A (Not Detectd) 06/01/22 Range/Units 19:25 WBC (3.8-10.6) k/uL RBC (4.30-5.90) m/uL Hgb (13.0-17.5) gm/dL Hct (39.0-53.0) % MCV (80.0-100.0) fL MCH (25.0-35.0) pg MCHC (31.0-37.0) g/dL RDW (11.5-15.5) % Plt Count (150-450) k/uL MPV Neutrophils % % Lymphocytes % % Monocytes % % Eosinophils % % Basophils % % Neutrophils # (1.3-7.7) k/uL Lymphocytes # (1.0-4.8) k/uL Monocytes # (0-1.0) k/uL Eosinophils # (0-0.7) k/uL Basophils # (0-0.2) k/uL Sodium (137-145) mmol/L Potassium (3.5-5.1) mmol/L Chloride (98-107) mmol/L Carbon Dioxide (22-30) mmol/L Anion Gap mmol/L BUN (9-20) mg/dL Creatinine (0.66-1.25) mg/dL Est GFR (CKD-EPI)AfAm (>60 ml/min/1.73 sqM) Est GFR (CKD-EPI)NonAf (>60 ml/min/1.73 sqM) Glucose (74-99) mg/dL Calcium (8.4-10.2) mg/dL Total Bilirubin (0.2-1.3) mg/dL AST (17-59) U/L ALT (4-49) U/L Alkaline Phosphatase (38-126) U/L Troponin I <0.012 (0.000-0.034) ng/mL Total Protein (6.3-8.2) g/dL Albumin (3.5-5.0) g/dL Influenza Type A (PCR) (Not Detectd) Influenza Type B (PCR) (Not Detectd) RSV (PCR) (Not Detectd) SARS-CoV-2 (PCR) (Not Detectd) - EKG Data -: EKG Interpreted by Me EKG Comments: Sinus rhythm. Ventricular rate 69. [place] interval 153. QRS 97. QT 384. QTC 403. No acute changes compared to previous EKG. EKG interpreted by myself as well as my attending Disposition Clinical Impression: COVID Disposition: HOME SELF-CARE Condition: Good Instructions (If sedation given, give patient instructions): COVID-19 (Co ronavirus Disease 2019) (ED) Additional Instructions: Follow-up with PCP. Report back to ER with any new or worsening symptoms. Take medication as prescribed. Prescriptions: methylPREDNISolone Dose Pack [Medrol Dose Pack] 4 mg PO DIRECTED #1 packet Is patient prescribed a controlled substance at d/c from ED?: No Referrals: Andrade Way MD [Primary Care Provider] - 1-2 days Time of Disposition: 20:39
--- NOTE | 2022-06-01 19:12 | XR ---
EXAMINATION TYPE: XR chest 2V DATE OF EXAM: 06/01/2022 6:37 PM COMPARISON: Chest radiographs from 06/29/2020. TECHNIQUE: XR chest 2V Frontal and lateral views of the chest. CLINICAL INDICATION:Male, 56 years old with history of covid, chest pain; FINDINGS: Lungs/Pleura: There is no evidence of pleural effusion, focal consolidation, or pneumothorax. Pulmonary vascularity: Unremarkable. Heart/mediastinum: Cardiomediastinal silhouette is unremarkable. Musculoskeletal: No acute osseous pathology. Nerve stimulator lines project over the spine. IMPRESSION: No acute cardiopulmonary disease/process.
[2022-06-01 19:35] LABS: Basophils # (A) 0.1 k/uL (0-0.2); Basophils % (A) 1 %; Eosinophils # (A) 0.3 k/uL (0-0.7); Eosinophils % (A) 6 %; HCT 44.3 % (39.0-53.0); HGB 14.8 gm/dL (13.0-17.5); Lymphocytes # (A) 2.1 k/uL (1.0-4.8); Lymphocytes % (A) 44 %; MCH 29.5 pg (25.0-35.0); MCHC 33.4 g/dL (31.0-37.0); MCV 88.1 fL (80.0-100.0); Mean Platelet Volume 8.3; Monocytes # (A) 0.5 k/uL (0-1.0); Monocytes % (A) 9 %; Neutrophils # (A) 1.8 k/uL (1.3-7.7); Neutrophils % (A) 37 %; Platelet Count 261 k/uL (150-450); RBC 5.03 m/uL (4.30-5.90); RDW 13.2 % (11.5-15.5); WBC 4.8 k/uL (3.8-10.6)
[2022-06-01 19:55] LABS: ALT 123 U/L (4-49); AST 174 U/L (17-59); African American GFR (CKD) >90 (>60 ml/min/1.73 sqM); Albumin 4.3 g/dL (3.5-5.0); Alkaline Phosphatase 138 U/L (38-126); Anion Gap 10 mmol/L; Blood Urea Nitrogen 14 mg/dL (9-20); Calcium 8.8 mg/dL (8.4-10.2); Carbon Dioxide 26 mmol/L (22-30); Chloride 105 mmol/L (98-107); Glucose 101 mg/dL (74-99); Non-African American GFR(CKD) >90 (>60 ml/min/1.73 sqM); Potassium 3.6 mmol/L (3.5-5.1); Sodium 141 mmol/L (137-145); Total Bilirubin 0.6 mg/dL (0.2-1.3); Total Protein 7.9 g/dL (6.3-8.2)
== END 2022-06-01 22:11 | disposition home or self-care (01) ==
LOC: EC 15:26
DX: U07.1 COVID-19 (principal); F32.A Depression, unspecified; I10 Essential (primary) hypertension; I25.10 Atherosclerotic heart disease of native coronary artery without angina pectoris; I25.2 Old myocardial infarction; J45.909 Unspecified asthma, uncomplicated; E78.5 Hyperlipidemia, unspecified; K21.9 Gastro-esophageal reflux disease without esophagitis; Z91.040 Latex allergy status; Z87.891 Personal history of nicotine dependence; Z79.899 Other long term (current) drug therapy
CPT/HCPCS: 36415; 71046; 80053; 84484; 85025; 87636; 93005; 99283

== ENCOUNTER 2024-03-02 06:50 | Day surgery (SDC) | payer MEDICARE ==
[~2024-03-02 06:50] MED LIST: LIDOCAINE 1% (10MG/ML) FOR IV START INTRADERMA PRN
[2024-03-02 07:13] VITALS: TEMP 97.2
[2024-03-02] MEDS: LACTATED RINGERS 1,000 ML IV SCH (07:22)
[2024-03-02] MEDS: IV FLUID CONTINUATION 1,000 ML IV ONE (07:23)
[2024-03-02 07:42] LABS: Glucose,Whole Blood 120 mg/dL (70-110)
[2024-03-02] MEDS ORDERED: PROPOFOL 10 MG/ML 20 ML VIAL IV ONE (08:07)
--- NOTE | 2024-03-02 08:11 | P.GSHP ---
History of Present Illness H&P Date: 03/02/24 Chief Complaint: Gerd, screening colonoscopy Is a 58-year-old male who presents today for EGD and screening colonoscopy. Patient has issues with GERD. Past Medical History Past Medical History: Asthma, Coronary Artery Disease (CAD), Chest Pain / Angina, Diabetes Mellitus, GERD/Reflux, Hyperlipidemia, Hypertension, Myocardial Infarction ([place]), Osteoarthritis (OA), Prostate Disorder, Skin Disorder Additional Past Medical History / Comment(s): palpitations, uticaria vasculitis,ReFlex sympathetic dystrophy syndrome (nerve disorder, has implanted device in lt hip). kidney stones Last Myocardial Infarction Date:: 1986 (was told but did not know) and 06-02-17 History of Any Multi-Drug Resistant Organisms: None Reported Past Surgical History: Heart Catheterization With Stent, Hernia Repair, Tonsillectomy Additional Past Surgical History / Comment(s): cystoscopy, device in left hip for rsd, 5x hernia sx5, tonsillectomy and adenoidectomy, colonoscopy. stents x2 Past Anesthesia/Blood Transfusion Reactions: Family History of Problems w/ Anesthesia Additional Past Anesthesia/Blood Transfusion Reaction / Comment(s): mom had bp probelms after aa. hx of clausterphobia after lft hip implant had severe panic attack Date of Last Stent Placement:: 06/02/17 Smoking Status: Former smoker - Past Family History Father Family Medical History: Cancer, Congestive Heart Failure (CHF) Additional Family Medical History / Comment(s): Father at age 91 from congestive heart failure. He also had history of leukemia. Mother Family Medical History: Dementia, Myocardial Infarction ([place]) Additional Family Medical History / Comment(s): Mother at age 90 from dementia. She also has history of pacemaker. Brother(s) Family Medical History: Coronary Artery Disease (CAD) Additional Family Medical History / Comment(s): Patient has 2 brothers one of the brothers with CAD. Sister(s) Family Medical History: Diabetes Mellitus Additional Family Medical History / Comment(s): Patient had 2 sisters one of them at age of 56 from diabetes complications. Daughter(s) Family Medical History: No Reported History, Diabetes Mellitus Additional Family Medical History / Comment(s): Patient has 3 daughters no major medical problems. Son(s) Family Medical History: No Reported History Additional Family Medical History / Comment(s): Patient has one son no major medical problems. Medications and Allergies Home Medications Medication Instructions Recorded Confirmed Type Nitroglycerin Sl Tabs [Nitrostat] 0.4 mg SUBLINGUAL Q5M PRN #25 tab 10/03/16 03/02/24 Rx Omeprazole 40 mg PO DAILY 06/02/17 03/02/24 History Metoprolol Tartrate [Lopressor] 50 mg PO BID 05/23/18 03/02/24 History Rosuvastatin Calcium [Crestor] 40 mg PO DAILY 05/23/18 03/02/24 History Aspirin EC [Ecotrin Low Dose] 81 mg PO DAILY #30 tablet.dr 03/15/19 03/02/24 Rx amLODIPine [Norvasc] 5 mg PO DAILY #30 tab 03/15/19 03/02/24 Rx Ibuprofen [Motrin] 600 mg PO Q6HR PRN #30 tab 06/29/20 03/02/24 Rx Tamsulosin HCl [Flomax] 0.4 mg PO DAILY 07/21/22 03/02/24 History Multivitamins, Thera [Multivitamin 1 tab PO DAILY 02/29/24 03/02/24 History (formulary)] Semaglutide [Ozempic] 2 mg SQ SA 02/29/24 03/02/24 History Vit D(Unk) 1 tab PO DAILY 02/29/24 03/02/24 History Allergies Allergy/AdvReac Type Severity Reaction Status Date / Time latex Allergy Rash/Hives Verified 03/02/24 07:07 Surgical - Exam Vital Signs Temp Pulse Resp BP Pulse Ox 97.2 F L 89 18 125/79 98 03/02/24 07:06 03/02/24 07:06 03/02/24 07:06 03/02/24 07:06 03/02/24 07:06 - General well developed, well nourished, no distress - Eyes PERRL - ENT normal pinna - Neck no masses - Respiratory normal expansion - Cardiovascular Rhythm: regular - Abdomen Abdomen: soft, non tender Results - Labs Abnormal Lab Results - Last 24 Hours (Table) 03/02/24 Range/Units 07:20 POC Glucose (mg/dL) 120 H (70-110) mg/dL Assessment and Plan Assessment: Gerd will perform EGD. Will perform screening colonoscopy.
[2024-03-02 08:39] VITALS: RESP 16
[2024-03-02 08:54] VITALS: BP 105/73; PULSE 70
--- NOTE | 2024-03-02 09:06 | P.OP ---
Date of Procedure: 03/02/24 Preoperative Diagnosis: Gerd Screening colonoscopy Postoperative Diagnosis: Antral gastritis Small sliding hiatal hernia Mild esophagitis Mild diverticulosis Procedure(s) Performed: EGD Colonoscopy Anesthesia: MAC Surgeon: Endy Schaefer Pathology: other (Antrum, esophagus) Condition: stable Disposition: PACU Description of Procedure: The patient was placed on the endoscopy table in the lateral position. He received IV sedation. Digital rectal exam was performed. This revealed no abnormality. The flexible colonoscope was then placed patient anus passed throughout the entire colon. The ileocecal valve was visualized. The cecum, ascending and transverse colon appeared normal. The descending sigmoid colon there is mild diverticular changes. Scope back to the rectum this appeared normal. Scope drive the patient. Next the gas close placed oropharynx passed in the esophagus and stomach. Scope was placed through the pylorus. The first and second portion of the duodenum appeared normal. Scope was brought back to the antrum this was mildl mildly inflamed m. A biopsy was performed. The scope was then retroflexed in the remainder of the stomach appeared normal. There was a small sliding hiatal hernia. The GE junction was at 38 cm. The distal esophagus appeared minimal Flaim. A biopsy performed. The proximal esophagus appeared normal. The scope withdrawn from patient.
== END 2024-03-02 09:08 | disposition home or self-care (01) ==
LOC: ORWHC2ENDO 06:50
PROVIDERS: ATTEND Surgery
DX: K21.9 Gastro-esophageal reflux disease without esophagitis
CPT/HCPCS: 43239; 45378; 88305

== ENCOUNTER 2024-03-06 08:51 | Day surgery (SDC) | payer MEDICARE ==
[~2024-03-06 08:51] MED LIST changes: -LIDOCAINE 1% (10MG/ML) FOR IV START INTRADERMA PRN; +Pre Op ABX Message 1 EACH MISC MISCELLANE ONE
[2024-03-06] MEDS ORDERED: LIDOCAINE 1% (10MG/ML) FOR IV START INTRADERMA PRN (09:13)
[2024-03-06] MEDS ORDERED: droPERidol 5 MG/2 ML VIAL IVP PRN (09:13)
[2024-03-06] MEDS ORDERED: HYDROmorphone 0.5 MG/0.5 ML SYRINGE IVP PRN (09:13)
[2024-03-06 09:33] LABS: Glucose,Whole Blood 117 mg/dL (70-110)
[2024-03-06] MEDS: LACTATED RINGERS 1,000 ML IV SCH (09:39)
[2024-03-06] MEDS: ONDANSETRON 4 MG/2 ML VIAL IVP ONE (09:40)
[2024-03-06] MEDS: ACETAMINOPHEN TAB 500 MG TAB PO PRN (09:40)
[2024-03-06] MEDS: DEXAMETHASONE SOD PHOSPHATE 4 MG/ML 1 ML VIAL IV ONE (09:41)
[2024-03-06] MEDS: IV FLUID CONTINUATION 1,000 ML IV ONE ×2 (09:41→12:15)
[2024-03-06] MEDS: HEPARIN SODIUM,PORCINE 5,000 UNIT/ML 1 ML VIAL SQ PRN (09:41)
[2024-03-06] MEDS ORDERED: PHENYLEPHRINE 10 MG/ML VIAL ONE (11:36)
[2024-03-06] MEDS ORDERED: fentaNYL (PF) 50 MCG/ML 2 ML AMP ONE (11:36)
[2024-03-06] MEDS ORDERED: MIDAZOLAM 2 MG/2 ML VIAL ONE (11:36)
[2024-03-06] MEDS ORDERED: SUCCINYLCHOLINE CHLORIDE 200 MG/10 ML VIAL IV ONE (11:36)
[2024-03-06] MEDS ORDERED: LIDOCAINE 1% INJ 10MG/ML (20 ML MDV) ONE (11:36)
[2024-03-06] MEDS ORDERED: KETOROLAC 30 MG/ML 1 ML VIAL ONE (11:36)
[2024-03-06] MEDS ORDERED: PROPOFOL 10 MG/ML 20 ML VIAL IV ONE (11:36)
[2024-03-06] MEDS: LIDOCAINE 1%-EPI 1:100,000 20 ML VIAL SQ ONE (11:49)
[2024-03-06 12:26] VITALS: TEMP 98
--- NOTE | 2024-03-06 12:27 | P.OP ---
Date of Procedure: 03/06/24 Preoperative Diagnosis: Left back lipoma Postoperative Diagnosis: Left back lipoma Procedure(s) Performed: Excision of left back lipoma Anesthesia: SANDHYA Surgeon: Endy Schaefer Estimated Blood Loss (ml): 5 Pathology: other (Lipoma) Condition: stable Disposition: PACU Operative Findings: 15 cm lipoma Description of Procedure: The patient was placed on the operative table in the supine position. He received general trach tube anesthesia. He was then placed in the lateral position. The ear the lipoma was anesthetized 1% local Xylocaine. Then using a 15 blade the skin was incised. Using electrocautery and blunt sharp/electrocautery the lipoma was dissected free. The specimen sent to pathology. The bone to be states. A DIONISIO drain was placed in the lipoma space. This was brought through separate stab incision secured with 2-0 nylon suture. Skin was low alysia. Patient tolerated well. Sent to recovery room in stable condition.
[2024-03-06 13:25] VITALS: BP 113/82; PULSE 68; RESP 20
== END 2024-03-06 13:58 | disposition home or self-care (01) ==
LOC: OR 08:51
PROVIDERS: ATTEND Surgery
DX: D17.1 Benign lipomatous neoplasm of skin and subcutaneous tissue of trunk
CPT/HCPCS: 88304

== ENCOUNTER → 2024-08-29 | Outpatient (CLI) | payer MEDICARE ==
--- NOTE | 2024-08-29 15:54 | CTL ---
EXAMINATION TYPE: CT Low Dose Lung DATE OF EXAM ORDERED: 08/29/2024 COMPARISON: 01/01/2021 CLINICAL INDICATION: Male, 58 years old with history of Z12.2 SCREENNING Z87.891 NICOTINE DEPENDEN; P HH, former smoker, quit 8 years ago, smoked 2 PPD x30 years, Lung cancer screening, History of Smokin g/tobacco use. TECHNIQUE: Low dose computed tomography scan was performed through the chest at 1 mm thick sections a nd reconstructed images in multiple planes at 1 mm and [address] DLP: 169.[address] CTDI: 4.3 mGy Automated exposure control for dose reduction was used. CT DIAGNOSTIC QUALITY: Satisfactory EXAMINATION TYPE: CT Low Dose Lung DATE OF EXAM ORDERED: 08/29/2024 CLINICAL INDICATION: Male, 58 years old with history of Z12.2 SCREENNING Z87.891 NICOTINE DEPENDEN, h istory of tobacco use, Lung cancer screening CT DLP: 169.[address] CTDI: 4.3 mGy Automated exposure control for dose reduction was used. Comparison: None TECHNIQUE: Low dose computed tomography scan was performed through the chest at 1 mm thick sections a nd reconstructed images in multiple planes at 1 mm and [address] DIAGNOSTIC QUALITY: Satisfactory FINDINGS: There are [id number] emphysematous changes with an upper lobe predominance. There is a new 6 mm left lower lobe pulmonary nodule and a new 2 mm right lower lobe pulmonary nodule . The lungs are clear and there is no abnormal airspace consolidation or interstitial density. There is no mediastinal, hilar or axillary adenopathy. There is no pleural effusion, pleural thickening or pneumothorax. No focal osseous lesions are seen. Limited scans the upper abdomen reveals no gross abnormality IMPRESSION: 1. Lung rads Category 3, likely benign. Follow-up CT thorax in 6 months is recommended to confirm sta bility. 2. No acute cardiopulmonary disease. 3. Mild to moderate emphysematous changes [facility], , 08/29/2024 3:52 PM
== END | disposition home or self-care (01) ==
LOC: RADCTMAIN 14:45
PROVIDERS: ATTEND Family Medicine
DX: Z12.2 Encounter for screening for malignant neoplasm of respiratory organs (principal); J43.9 Emphysema, unspecified; Z87.891 Personal history of nicotine dependence
CPT/HCPCS: 71271